=== PATIENT | female | born 1940 | race Caucasian/White ===

== ENCOUNTER → 2016-11-05 | Day surgery (SDC) | payer OTHER ==
[~2016-11-05] MED LIST: ALEN70 PO; BUPIVACAINE HCL PF 0.75% 30 ML VIAL ONE; CALTTAB2 PO; CENTTAB9 PO; DEXAMETHASONE SOD PHOS 4 MG/ML VIAL ONE; DYAZ37.52 PO; EPINEPHrine HCL (1:1000) 1 MG/ML VIAL ONE; LACTATED RINGER'S 1000 ML INJ 1,000 ML ONE; LASI20TA PO; LIDOCAINE HCL 4% PF 5 ML AMP ONE; MEVA40TA6 PO; MIDAZOLAM HCL 2 MG/2 ML VIAL ONE; MOXIFLOXACIN 0.5% OPHT SOLN 3 ML BTL ONE; ONDANSETRON HCL 4 MG/2 ML VIAL IV PUSH ONE; PHENYLEPHRINE HCL 10% OPTH SOLN 5 ML BTL ONE; PROPOFOL 100 MG/10 ML INJ IV ONE; ROXI5TAB4 PO; SODIUM CHLORIDE 0.9% INJ 10 ML ONE; TETRACAINE 0.5% OPTH SOLN 15 ML BTL ONE; TOBRAMYCIN/DEXAMETHASONE OPTH OINT 3.5 GM TUBE ONE; TRAZ50TA78 PO; TRIAMCINOLONE ACETONIDE 40 MG/ML VIAL ONE; ceFAZolin INJ 1,000 MG VIAL ONE; prednisoLONE ACETATE 1% OPHT SUSP 5 ML BTL ONE
--- NOTE | 2016-11-07 06:09 | TN ---
cc: BO OREILLY MD DATE OF SURGERY November 05, 2016 DATE OF 1940. PREOPERATIVE DIAGNOSIS Dense asteroid hyalosis left eye. POSTOPERATIVE DIAGNOSIS Dense asteroid hyalosis left eye. PROCEDURE Pars plana vitrectomy left eye. ANESTHESIA Dr. Paredes general. BLOOD LOSS Less than 1 cc. COMPLICATIONS None. INDICATIONS FOR PROCEDURE This is a delightful patient who initially presented with a retinal vein occlusion which was successfully treated. The patient was left with central retinal atrophy which limited central vision but the patient also has a difficult time with daily function with dense asteroid hyalosis. The patient elected for surgical correction understanding that the central vision would continue to be limited with central atrophy. PROCEDURE NOTE Informed consent was obtained, the patient was brought to operating room. General anesthesia was established. The left eye was prepped and draped in sterile fashion with Betadine in the conjunctival fornix. A three port pars vitrectomy was established with self-retaining infusion cannula. Core vitreous was removed, posterior vitreous detachment created and central asteroid hyalosis with central asteroid bodies were removed. Scleral depressed examination revealed no retinal holes, tears or detachments. The trocars were removed and sclerotomies closed. Subconjunctival injection of Ancef and dexamethasone were given. The eye was patched with Tobramycin ointment. The patient was brought to the recovery room in stable condition and will continue followup with [facility]. Bo Oreilly MD KW/SSB /9:46 AM /5:53 AM
== END | disposition home or self-care (01) ==
LOC: ESDC 09:03
PROVIDERS: ATTEND Ophthalmology
DX: H43.22 Crystalline deposits in vitreous body, left eye (principal)
CPT/HCPCS: 00145; 67036; J0171; J0690; J1100; J2250; J2405; J3010; J7120; J3301

== ENCOUNTER 2017-11-03 07:38 | Day surgery (SDC) | payer OTHER, MEDICAID ==
[~2017-11-03] VITALS: Ht 160 cm; Wt 71.8 kg
[~2017-11-03 07:38] MED LIST changes: -BUPIVACAINE HCL PF 0.75% 30 ML VIAL ONE; -DEXAMETHASONE SOD PHOS 4 MG/ML VIAL ONE; -EPINEPHrine HCL (1:1000) 1 MG/ML VIAL ONE; -LACTATED RINGER'S 1000 ML INJ 1,000 ML ONE; -LIDOCAINE HCL 4% PF 5 ML AMP ONE; -MIDAZOLAM HCL 2 MG/2 ML VIAL ONE; -MOXIFLOXACIN 0.5% OPHT SOLN 3 ML BTL ONE; -ONDANSETRON HCL 4 MG/2 ML VIAL IV PUSH ONE; -PHENYLEPHRINE HCL 10% OPTH SOLN 5 ML BTL ONE; -PROPOFOL 100 MG/10 ML INJ IV ONE; -SODIUM CHLORIDE 0.9% INJ 10 ML ONE; -TETRACAINE 0.5% OPTH SOLN 15 ML BTL ONE; -TOBRAMYCIN/DEXAMETHASONE OPTH OINT 3.5 GM TUBE ONE; -TRIAMCINOLONE ACETONIDE 40 MG/ML VIAL ONE; -ceFAZolin INJ 1,000 MG VIAL ONE; -prednisoLONE ACETATE 1% OPHT SUSP 5 ML BTL ONE
[2017-11-03 07:56] VITALS: BP 188/102; PULSE 77; RESP 20; TEMP 97.8; O2SAT 97
[2017-11-03] MEDS ORDERED: DEXA4TAB PO (08:01)
[2017-11-03] MEDS ORDERED: ROSU5 PO (08:01)
[2017-11-03] MEDS ORDERED: LORA0.5T PO (08:01)
[2017-11-03] MEDS ORDERED: TAMO10TA6 PO (08:01)
[2017-11-03] MEDS ORDERED: ENOX100I SQ (08:01)
[2017-11-03 08:30] LABS: AUTOMATED NEUTROPHIL # 9.6 TH/MM3 (1.8-7.7); BASOPHIL # 0.1 TH/MM3 (0-0.2); BASOPHIL % 0.4 % (0.0-2.0); EOSINOPHIL # 0.2 TH/MM3 (0-0.4); EOSINOPHIL % 1.7 % (0.0-4.0); HEMATOCRIT 42.2 % (35.0-46.0); HEMOGLOBIN 14.4 GM/DL (11.6-15.3); LYMPH % 21.2 % (9.0-44.0); LYMPHOCYTE # 2.9 TH/MM3 (1.0-4.8); MEAN CELL VOLUME 89.9 FL (80.0-100.0); MEAN CORPUSCULAR HEMOGLOBIN 30.7 PG (27.0-34.0); MEAN CORPUSCULAR HGB CONC 34.1 % (32.0-36.0); MEAN PLATELET VOLUME 7.8 FL (7.0-11.0); MONO % 6.5 % (0.0-8.0); MONOCYTE # 0.9 TH/MM3 (0-0.9); NEUT % 70.2 % (16.0-70.0); PLATELET COUNT 276 TH/MM3 (150-450); RED CELL DISTRIBUTION WIDTH 14.7 % (11.6-17.2); WHITE BLOOD COUNT 13.8 TH/MM3 (4.0-11.0)
[2017-11-03] MEDS ORDERED: ceFAZolin 2 GM PREMIX 50 ML IV SCH (08:45)
[2017-11-03] MEDS ORDERED: POVIDONE IODINE 5% (ANTISEPSIS KIT) 4 APPLICATIONS EACH NARE SCH (08:45)
[2017-11-03] MEDS ORDERED: CHLORHEXIDINE GLUCONATE 2 % 1 PACK (2 CLOTHS) TOPICAL SCH (08:45)
[2017-11-03] MEDS ORDERED: SODIUM CHLOR 0.9% 1000 ML INJ 1,000 ML IV SCH (08:45)
[2017-11-03] MEDS ORDERED: VANCOMYCIN 1 GM/200 ML PREMIX ON-CALL IV SCH (09:00)
[2017-11-03] MEDS ORDERED: fentaNYL CITRATE 250 MCG/5 ML AMP ONE (09:28)
[2017-11-03] MEDS ORDERED: MIDAZOLAM HCL 2 MG/2 ML VIAL ONE (09:28)
[2017-11-03 10:45] VITALS: BP 150/84; PULSE 59; RESP 20; TEMP 97.8; O2SAT 97
[2017-11-03 11:00] VITALS: BP 152/77; PULSE 57; RESP 20; O2SAT 96
--- NOTE | 2017-11-03 11:14 | PD.RAD ---
Post Procedure Progress Note Pre Procedure Diagnosis: (1) Lung cancer Post Procedure Diagnosis: (1) Lung cancer Procedure Date: Nov 03, 2017 Supervising Radiologist: Sheldon Rogers Proceduralist/Assist: Jeannine Dunaway, RT(R), Andra Avalos, RT(R) Estimated blood loss: none Anesthesia: Local, Conscious Sedation Plan of Activity Patient to Unit: ROPU Patient Condition: Good See PACS Report for procedural detail/treatment Central Venous Access Device Procedure 1 Right Internal Jugular Infusaport Placement single lumen Hungarian: 8 Sheldon Rogers MD Nov 03, 2017 11:14
[2017-11-03] MEDS ORDERED: SODIUM CHLORIDE 0.9% FLUSH 10 ML FLUSH IVF PRN (11:15)
--- NOTE | 2017-11-03 11:23 | RADRPT ---
EXAM DATE/TIME: 11/03/2017 11:16 [place] COMPARISON: No previous studies available for comparison. INDICATIONS : Patient presents with lung cancer in need of port placement. MEDICAL HISTORY : Right Breast Cancer Vaginal Prolapse Hyperlipidemia HTN Hypothyroidism Osteopenia Pelvic Congestion Syndrome Vitamin D Deficiency SURGICAL HISTORY : Hand Sx Repair Colonoscopy Hysterectomy Plastic Sx on Eyes Lumpectomy Lymph Nodectomy ENCOUNTER: Initial ACUITY: 3 months PAIN SCORE: 0/10 FLUORO TIME: .5 minutes IMAGE SERIES: 1 SEDATION TIME: 30 minutes ACCESS: Right internal jugular vein SEDATION: 1.) 3.5 mg midazolam (Versed) IV 2.) 125 mcg fentanyl (Sublimaze) IV Prophylactic antibiotics were administered with appropriate pre-procedure timing. Vancomycin within 2 hours of procedure, Ancef (or alternative) within 1 hour of procedure. DEVICE: 1. 8 Niuean single lumen [id number] PROCEDURE : 1. Continuous pulse oximetry and EKG monitoring. 2. Intravenous conscious sedation. 3. Ultrasound guidance for venous access. 4. Fluoroscopic guided implantable central venous port placement. The patient was placed supine. The neck was prepped in sterile fashion. Full sterile technique was u sed, including cap, mask, sterile gloves and gown, and a large sterile sheet. Hand hygiene and 2% ch lorhexidine Betadine was utilized per protocol for cutaneous antisepsis with appropriate dry time for site. Sterile gel and sterile probe cover were utilized for ultrasound guidance. The skin and sub cutaneous tissues were infiltrated with local anesthetic solution. Under direct ultrasound guidance, central venous access was accomplished in the targeted vessel. The ultrasound images depicting access guidance were stored and saved to PACS for permanent record. A s ubcutaneous pocket was created using blunt dissection. The port was introduced to the pocket. The c atheter tubing was fed through a subcutaneous tunnel to the venotomy site. The catheter tubing was c ut to a suitable length and then was introduced through a valved Peel-Away sheath and positioned with catheter tubing tip at the cavo-atrial junction level. The pocket incision was closed with subcutic ular Vicryl suture. Steri-Strips were applied. The port was flushed and locked with heparin solutio n per protocol. Sterile dressing was applied to the site. The patient tolerated the procedure well. Conscious sedation was performed with the prescribed dosages and duration as above in the presence of an independent trained radiology nurse to assist in the monitoring of the patient. EKG and oximetry remained stable throughout the procedure. The patient tolerated the procedure well and there were no complications. The patient was sent to post anesthesia recovery in stable condition. CONCLUSION: Uncomplicated ultrasound and fluoroscopic guided implanted central venous port catheter placement as described in detail above. An 8 Niuean Power port was placed. Sheldon Rogers MD on November 03, 2017 at 11:20 Board Certified Radiologist. This report was verified electronically.
[2017-11-03 11:30] VITALS: BP 160/97; PULSE 64; RESP 20; O2SAT 98
[2017-11-03 12:00] VITALS: BP 149/89; PULSE 68; RESP 20; O2SAT 98
[2017-11-03 12:30] VITALS: BP 115/66; PULSE 64; RESP 20; O2SAT 95
== END 2017-11-03 15:31 | disposition home or self-care (01) ==
LOC: HROP 07:38 → HRIP 07:42 → HROP 15:31
PROVIDERS: ATTEND Internal Medicine
DX: Z45.2 Encounter for adjustment and management of vascular access device (principal); C34.90 Malignant neoplasm of unspecified part of unspecified bronchus or lung; Z85.3 Personal history of malignant neoplasm of breast; E78.5 Hyperlipidemia, unspecified; I10 Essential (primary) hypertension; E03.9 Hypothyroidism, unspecified; M85.80 Other specified disorders of bone density and structure, unspecified site; E55.9 Vitamin D deficiency, unspecified; Z79.01 Long term (current) use of anticoagulants
CPT/HCPCS: 36561; 76937; 77001; 85025; 85610; 85730; 99152; 99153; C1788; J0690; J1642; J2250; J3010; J3370

== ENCOUNTER 2018-06-10 12:18 | Inpatient (IN) ==
[2018-06-10] MEDS ORDERED: Morphine Inj 4 MG/ML Vial IV.PUSH ONE (13:35)
--- NOTE | 2018-06-10 13:39 | ED ---
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 The patient states that her last dose of chemotherapy was 05/29/18. States that she has been getting chemotherapy every 3 weeks for the past 8 months. States that she typically has nausea and vomiting 3 days after her chemotherapy and then it resolves. States that this time she has been vomiting for 2 weeks straight and has been unable to keep down food. States she has been able to keep down fluids. She also complains of abdominal pain on the left side. Aggravated with vomiting and palpation. Denies any prior abdominal surgeries. She does note that she had a week's worth of dark black stool that occurred 1 week ago. She denies any fever, chills, cough or cold symptoms. She is also complaining of lower back pain which has been present for quite some time, reports a history of osteoarthritis in her spine. Denies any new injury or trauma to her lower back. Pain in the lower back is aggravated with movement. Oncologist Dr. Lam. No other complaints or concerns. Related Data Home Medications Medication Instructions Recorded Confirmed apixaban [Eliquis] 2.5 mg PO BID 06/10/18 06/10/18 folic acid 1 mg PO DAILY 06/10/18 06/10/18 furosemide 20 mg PO DAILY 06/10/18 06/10/18 ibuprofen 800 mg PO TID PRN 06/10/18 06/10/18 levothyroxine 25 mcg DIRECTED 06/10/18 06/10/18 lorazepam 0.5 mg PO DIRECTED 06/10/18 06/10/18 potassium chloride 20 meq PO DIRECTED 06/10/18 06/10/18 rosuvastatin 5 mg PO DAILY 06/10/18 06/10/18 tizanidine 4 mg PO DAILY 06/10/18 06/10/18 trazodone 50 mg PO DAILY 06/10/18 06/10/18 triamterene-hydrochlorothiazid 37.5 mg PO DAILY 06/10/18 06/10/18 Allergies Allergy/AdvReac Type Severity Reaction Status Date / Time No Known Allergies Allergy Unknown Uncoded 11/03/17 08:29 Review of Systems ROS: all other systems reviewed are negative [facility] Medical History Medical History Anxiety (Acute) Bone cancer (Acute) Chronic kidney disease (Acute) DVT (deep venous thrombosis) (Acute) Former smoker (Acute) Hypertension (Acute) Hypothyroidism (Acute) Insomnia (Acute) Lung cancer (Acute) Social History Social History Substance History: No History of Abuse Smoking Status: Unknown if ever smoked How Often Do You Have a Drink Containing Alcohol: Never Recent Travel in [facility] within the Last 8 Weeks: No Recent Out of Country Travel within the Last 8 Weeks: No Immunization History Tetanus Immunization: <5 Years Hx Influenza Vaccine This Season: No Exam Narrative Exam Narrative: GENERAL: Well-nourished and well-developed pleasant patient in no acute distress who is nontoxic appearing. SKIN: Warm and dry. Pallor noted. HEAD: Normocephalic and atraumatic. EYES: No injection, drainage, or hyphema noted. PERRLA. EOMI. ENT: No nasal drainage noted. Oropharynx is clear. NECK: Supple and the trachea is midline. CARDIOVASCULAR: Regular rate and rhythm. RESPIRATORY: Breath sounds are equal bilaterally with no accessory muscle use, wheezing, rhonchi, or crackles. GASTROINTESTINAL: Tenderness to palpation of left upper quadrant and left lower quadrant. Abdomen is soft nondistended. No rebound tenderness or guarding. Negative Martinez sign. Negative McBurney's point. RECTAL EXAM: No masses or tenderness, stool is brown. Performed by Molly BASS student under my direct supervision. MUSCULOSKELETAL: No obvious deformities, swelling, cyanosis, or ecchymosis is present throughout the upper and lower extremities. Patient has full range of motion without any signs of neurovascular compromise. Distal pulses are 2+ throughout. BACK: Nontender without any obvious deformities, bony point tenderness, or crepitus noted throughout the thoracic and lumbar vertebrae. NEUROLOGICAL: Awake, alert, and oriented. Normal speech and gait. Cranial nerves are grossly intact. Procedures Hemaprompt Stool Procedural Steps Taken: specimen placed in appropriate test area, developer placed on specimen and control areas and controls appropriately positive and negative Hemaprompt Stool Result: negative Course Initial Documented Vital Signs Temperature 97.4 F L 06/10/18 12:25 Pulse Rate 112 H 06/10/18 12:25 Respiratory Rate 18 06/10/18 12:25 Blood Pressure 119/70 06/10/18 12:25 Pulse Oximetry 96 06/10/18 12:25 Last Documented Vital Signs Temperature 97.4 F L 06/10/18 12:25 Pulse Rate 81 06/10/18 16:00 Respiratory Rate 18 06/10/18 16:00 Blood Pressure 141/73 H 06/10/18 16:00 Pulse Oximetry 96 06/10/18 16:00 Medical Decision Making KASSANDRA Attestation KASSANDRA supervised visit: Yes Attestation: The history, exam, and medical decision-making in the associated mid-level provider note were completed with my assistance. I reviewed and agree with the findings presented. I attest that I had a [id number] encounter with the patient on the same day, and personally performed and documented my assessment and findings in the medical record. *My assessment and Findings: 77-year-old woman with malignancy, here with nausea vomiting diarrhea following chemotherapy. Much worse than she typically gets it. Looks nontoxic. She appears dehydrated. Her potassium is low. CT scan shows some enteritis. Will check C. difficile. She also has pyuria. Will treat for UTI. Supportive treatment. IV fluid rehydration. Will bring in for admission. MDM Narrative Medical decision making narrative: 77-year-old female is brought to the emergency department for evaluation of abdominal pain, nausea, vomiting and diarrhea. Vitals are within normal limits, slightly tachycardic. IV access is obtained, labs have been drawn and sent. CT of abdomen and pelvis ordered and pending. Patient administered IV fluids, Zofran and Morphine. CBC shows anemia with hemoglobin 9.3, hematocrit 25.5 Consistent with previous labs, slightly improved. Coags are unremarkable. CMP shows potassium 2.7, Cr is elevated at 1.30, BUN 23, GFR 40. Urinalysis is consistent with urinary tract infection. Patient is administered Rocephin [address] of the abdomen and pelvis with IV contrast shows mild colitis of the large bowel, left lower lobe mass has been present previously due to stage IV cancer. Will check C. difficile. Patient is administered 40 mEq of potassium orally. Patient reports she is still feeling very nauseous and weak. Discussed results with the patient. Recommend observation for IV hydration and electrolyte repletion. Patient is agreeable with this plan. I discussed the case with my attending physician Dr. Renteria who is aware of the patient's history, physical examination findings, and treatment plan. I discussed the patient with Dr. Santamaria [facility] who agrees to accept the patient under observation. Medical Screen Exam Complete: Yes Emergency Medical Condition: Yes Differential Diagnosis Differential Diagnosis: Anemia versus leukemia versus thrombocytopenia Lab Data Result diagrams: 06/10/18 14:05 06/10/18 14:05 Lab Results 06/10/18 06/10/18 06/10/18 Range/Units 14:05 14:05 16:05 WBC 7.1 (4.0-11.0) th/mm3 RBC 2.47 L (4.00-5.30) mil/mm3 Hgb 9.3 L (11.6-15.3) gm/dL Hct 25.5 L (35.0-46.0) % MCV 103.3 H (80.0-100.0) fL MCH 37.7 H (27.0-34.0) pg MCHC 36.5 H (32.0-36.0) % RDW 19.2 H (11.6-17.2) % Plt Count 31 L D (150-450) th/mm3 MPV 7.5 (7.0-11.0) fL Prelim Diff (Auto) Slide review pending Neut % (Auto) 79.0 H (16.0-70.0) % Lymph % (Auto) 14.7 (9.0-44.0) % Clark % (Auto) 6.1 (0.0-8.0) % Eos % (Auto) 0.0 (0.0-4.0) % Baso % (Auto) 0.2 (0.0-2.0) % Neut # (Auto) 5.6 (1.8-7.7) th/mm3 Lymph # (Auto) 1.0 (1.0-4.8) th/mm3 Clark # (Auto) 0.4 (0.0-0.9) th/mm3 Eos # (Auto) 0.0 (0.0-0.4) th/mm3 Baso # (Auto) 0.0 (0.0-0.2) th/mm3 WBC Differential . Diff Scan Auto diff confirmed Differential Comment . Platelet Estimate Low L (Normal) Platelet Morphology Normal (Normal) Sodium 135 L (136-145) meq/L Potassium 2.7 L* (3.5-5.1) meq/L Chloride 95 L (98-107) meq/L Carbon Dioxide 27.2 (21.0-32.0) meq/L Anion Gap 13 (5-15) meq/L BUN 23 H (7-18) mg/dL Creatinine 1.30 H (0.50-1.00) mg/dL Estimated GFR 40 L (>89) mL/min Random Glucose 143 H (74-106) mg/dL Calcium 8.7 (8.5-10.1) mg/dL Total Bilirubin 1.0 (0.2-1.0) mg/dL AST 34 (15-37) U/L ALT 28 (10-53) U/L Alkaline Phosphatase 46 (45-117) U/L Total Protein 7.2 (6.4-8.2) g/dL Albumin 2.3 L (3.4-5.0) g/dL Lipase 129 (73-393) U/L Urine Color [place] (Yellw/Straw) Urine Clarity Cloudy H (Clear) Urine pH 5.0 (5.0-8.5) Ur Specific [place] 1.016 (1.002-1.035) Urine Protein 100 H (Neg-Trace) mg/dL Urine Glucose (UA) Negative (Negative) mg/dL Urine Ketones Trace H (Negative) mg/dL Urine Occult Blood Moderate H (Negative) Urine Nitrate Positive H (Negative) Urine Bilirubin Negative (Negative) Urine Urobilinogen 2.0 H (Less than 2) mg/dL Ur Leukocyte Esterase Large H (Negative) Urine RBC 4 H (0-3) /hpf Urine WBC (0-5) /hpf Urine WBC Clumps Occasional H (None) Ur Squamous Epith Cells 7 (0-5) /hpf Urine Bacteria Many H (None) /hpf Hyaline Casts 2 (0-3) /lpf Granular Casts 11 (None) /lpf Urine Mucus Few H (Occasional) /lpf Micro UA Comment Culture indicated Ur Microscopic Review Not Reportable Urine Culture Comments Culture indicated Imaging Data Radiologist's impression: Abdomen/Pelvis CT 06/10/18 13:35 CONCLUSION: 1. Left lower lobe spiculated mass. 2. Fat-containing inguinal hernias. 3. Severe diverticulosis. 4. Small bowel wall thickening involving the large bowel which may reflect a mild colitis. Discharge Plan Discharge Disposition Patient Disposition: 30 Still Patient Discharge Condition Condition: Stable Discharge Details Diagnosis: Colitis, Nausea & vomiting, Acute UTI, Acute hypokalemia Physicians Team ED Provider: Markell Renteria ED Midlevel Provider: Maris Martinez Primary Care Provider: Getachew Chilel Rxs /Orders / Referrals /Forms Prescriptions: No Action apixaban [Eliquis] 2.5 mg Tablet 2.5 mg PO BID RF: 0 trazodone 50 mg Tablet 50 mg PO DAILY RF: 0 ibuprofen 800 mg Tablet 800 mg PO TID PRN (Reason: Pain) RF: 0 tizanidine 4 mg Tablet 4 mg PO DAILY RF: 0 triamterene-hydrochlorothiazid 37.5-25 mg Capsule 37.5 mg PO DAILY RF: 0 levothyroxine 25 mcg Tablet 25 mcg DIRECTED RF: 0 lorazepam 0.5 mg Tablet 0.5 mg PO DIRECTED RF: 0 folic acid 1 mg Tablet 1 mg PO DAILY RF: 0 furosemide 20 mg Tablet 20 mg PO DAILY RF: 0 rosuvastatin 5 mg Tablet 5 mg PO DAILY RF: 0 potassium chloride 20 mEq Tablet Extended Release 20 meq PO DIRECTED RF: 0 Discharge Interventions Interventions: Vital Signs Last Done: 06/10/18 17:00 Status ED Status: With Doctor
[2018-06-10] MEDS ORDERED: Sodium Chlor 0.9% Inj 500 ML IV.SIG SCH (14:00)
[2018-06-10 14:58] LABS: Baso % (Auto) 0.2 % (0.0-2.0); Hematocrit 25.5 % (35.0-46.0); Hemoglobin 9.3 gm/dL (11.6-15.3); Lymph % (Auto) 14.7 % (9.0-44.0); Mean Corpuscular Hemoglobin 37.7 pg (27.0-34.0); Mean Corpuscular Volume 103.3 fL (80.0-100.0); Mean Platelet Volume 7.5 fL (7.0-11.0); Mono # (Auto) 0.4 th/mm3 (0.0-0.9); Mono % (Auto) 6.1 % (0.0-8.0); Neut # (Auto) 5.6 th/mm3 (1.8-7.7); Red Blood Count 2.47 mil/mm3 (4.00-5.30); Red Cell Distribution Width 19.2 % (11.6-17.2); White Blood Count 7.1 th/mm3 (4.0-11.0)
[2018-06-10 14:59] LABS: Mean Corpuscular HGB Conc 36.5 % (32.0-36.0)
[2018-06-10 15:00] LABS: Platelet Count 31 th/mm3 (150-450)
[2018-06-10 15:35] LABS: Alanine Aminotransferase 28 U/L (10-53); Albumin 2.3 g/dL (3.4-5.0); Alkaline Phosphatase 46 U/L (45-117); Anion Gap 13 meq/L (5-15); Aspartate Aminotransferase 34 U/L (15-37); Blood Urea Nitrogen 23 mg/dL (7-18); Calcium 8.7 mg/dL (8.5-10.1); Carbon Dioxide 27.2 meq/L (21.0-32.0); Chloride 95 meq/L (98-107); Glomerular Filtration Rate 40 mL/min (>89); Glucose,Random 143 mg/dL (74-106); Lipase 129 U/L (73-393); Sodium 135 meq/L (136-145); Total Protein 7.2 g/dL (6.4-8.2)
[2018-06-10 15:38] LABS: Potassium 2.7 meq/L (3.5-5.1)
[2018-06-10 15:44] LABS: Platelet Morphology Normal (Normal)
[2018-06-10 16:41] LABS: Bacteria,Urine Many /hpf; Bilirubin,Urine Negative (Negative); Clarity,Urine Cloudy (Clear); Color,Urine Amber (Yellw/Straw); Glucose,Urine (UA) Negative (Negative); Hyaline Casts,Urine 2 /lpf (0-3); Leukocyte Esterase,Urine Large (Negative); Mucus,Urine Few /lpf (Occasional); Nitrite,Urine Positive (Negative); Specific Gravity,Urine 1.016 (1.002-1.035); Squamous Epithelial Cell,Urine 7 /hpf (0-5)
[2018-06-10] MEDS ORDERED: Sod Chloride 0.9% Inj 1,000 ML IV.SIG SCH (17:00)
[2018-06-10] MEDS ORDERED: Heparin Central Flush 100 UNIT/ML 5 ML Vial IV.FLUSH ONE (17:13)
--- NOTE | 2018-06-10 17:14 | CT ---
EXAM DATE: 06/10/2018 5:08 PM EDT AGE/SEX: 77 years / Female INDICATIONS: 2 weeks post chemotherapy and still having nausea, vomiting, diarrhea. Unable to jonna ate food. CLINICAL DATA: This is the patient's initial encounter. Patient reports that signs and symptoms have been present for 2 weeks and indicates a pain score of 0/10. MEDICAL/SURGICAL HISTORY: Carcinoma, bone. Carcinoma, lung. None. ORAL CONTRAST: No oral contrast ingested. RADIATION DOSE: 18.64 CTDI (mGy) COMPARISON: [facility], CT ABDOMEN AND PELVIS W/ CONTRAST, 01/21/2018. . TECHNIQUE: Multiple contiguous axial images were obtained through the abdomen and pelvis following b olus infusion of 83 ml Visipaque 320 (iodixanol) nonionic water-soluble contrast as a single exam d ose. No oral contrast ingested. Using automated exposure control and adjustment of the mA and/or kV according to patient size, radiation dose was kept as low as reasonably achievable to obtain optimal diagnostic quality images. DICOM format image data is available electronically for review and compar judit. FINDINGS: There is a spiculated mass in the left lower lobe again seen. There is atelectasis in the right lung base with tiny right effusion. Gallbladder, liver, spleen, pancreas, adrenals, kidneys and stomach ar e unremarkable. No evidence of bowel obstruction. Small fat-containing inguinal hernias are identifie d. There is severe diverticulosis of the sigmoid colon and descending colon identified. There is no e vidence for diverticulitis. There is circumferential bowel wall thickening involving the transverse c olon and proximal ascending colon as well as the descending colon and sigmoid colon. A mild colitis c an have this appearance. Atherosclerotic calcification of the aorta and iliac vessels are seen. Withi n the ventral left lateral abdominal wall, subcutaneous fat just deep to the skin, a 1.7 cm ovoid mas s is seen just inferior and medial to this is an additional 1.1 cm nodular focus. These are nonspecif ic but likely related to medicinal injection. Degenerative changes of the spine are seen and scattere d tiny sclerotic foci within the bones. CONCLUSION: 1. Left lower lobe spiculated mass. 2. Fat-containing inguinal hernias. 3. Severe diverticulosis. 4. Small bowel wall thickening involving the large bowel which may reflect a mild colitis. Electronically signed by: Darien Prado MD 06/10/2018 5:13 PM EDT
[2018-06-10] MEDS ORDERED: Acetaminophen 325 MG Tablet PO PRN (18:07)
--- NOTE | 2018-06-10 18:23 | P.HP ---
History of Present Illness Primary Care Physician: [facility] Chief Complaint: Intractable, nausea and vomiting History of Present Illness: 27-year-old female who for history of breast cancer with metastases on chemotherapy presented to the ED for evaluation of 3 weeks history of intractable nausea, vomiting and abdominal pain. Patient complains of dull and achy abdominal pain without any radiation to her back.. CT abdomen and the ED revealed mild colitis and the patient was found to have low potassium of 2.7. She has no GI bleed, however reports some occasional shortness of breath but denies any chest pain. Although patient does not endorse any dysuria, she was found to have abnormal UA for which she was treated with Rocephin 1 in ED. - Diagnosis (1) Colitis (2) Nausea & vomiting (3) Acute UTI (4) Acute hypokalemia Review of Systems All other systems reviewed negative except as stated in HPI PMFSH - History History Provided By: Patient - Medical History Medical History: Medical History (Last Updated 06/10/18 @ 13:47 by Michelle Garvin) Anxiety Bone cancer Chronic kidney disease DVT (deep venous thrombosis) Former smoker Hypertension Hypothyroidism Insomnia Lung cancer - Family History Family History: Family History (Last Updated 06/10/18 @ 18:31 by Stone Santamaria MD) Other Colon cancer - Tobacco History Smoking Status: Unknown if ever smoked - Alcohol History How Often Do You Have a Drink Containing Alcohol: Never - Substance Use History Substance History: No History of Abuse - Travel History Recent Travel in the [place] Within the Last 8 Weeks: No Recent Travel Out of the Country Within the Last 8 Weeks: No - Immunization History Tetanus Immunization: <5 Years Hx Influenza Vaccine This Season: No Medications and Allergies Active Medications: Active Medications Acetaminophen (Tylenol) 650 mg PO Q4H PRN PRN Reason: Temp > 100.4 Al Hydroxide/Mg Hydroxide (Milk Of Magntoya Liq) 30 ml PO Q12H PRN PRN Reason: Mild Constipation Albuterol (Duoneb Neb (Prn)) 1 ampul NEB Q2HR NEB PRN PRN Reason: SHORTNESS OF BREATH Apixaban (Eliquis) 2.5 mg PO BID IFTIKHAR Folic Acid (Folic Acid) 1 mg PO DAILY IFTIKHAR Furosemide (Lasix) 20 mg PO DAILY IFTIKHAR Sodium Chloride (Ns Inj) 500 mls @ 0 mls/hr IV.SIG BOLUS IFTIKHAR Last Infusion: 06/10/18 15:10 Dose: Infused Sodium Chloride (Ns Inj) 1,000 mls @ 0 mls/hr IV.SIG BOLUS IFTIKHAR Last Admin: 06/10/18 17:33 Dose: 999 mls/hr Potassium Chloride/Sodium Chloride (Potassium Chlor 20 Meq/Nacl 0.45% Inj) 1, 000 mls @ 84 mls/hr IV.CONT .[id number] IFTIKHAR Ceftriaxone Sodium 1,000 mg/ (Sodium Chloride) 100 mls @ 200 mls/hr IV.SIG Q24H IFTIKHAR Levothyroxine Sodium (Synthroid) 25 mcg PO DIRECTED [facility] Non-Formulary Medication (Rosuvastatin [Rosuvastatin]) 5 mg PO DAILY IFTIKHAR Non-Formulary Medication (Potassium Chloride [Potassium Chloride]) 20 meq PO DIRECTED IFTIKHAR Ondansetron HCl (Zofran Inj) 4 mg IV.PUSH Q6H PRN PRN Reason: NAUSEA OR VOMITING Potassium Bicarb/Potassium Chloride (K-Lyte Cl Eff) 25 meq PO ONCE ONE Stop: 06/10/18 18:12 Sodium Chloride (Ns Flush) 2 ml IV.FLUSH PRN PRN PRN Reason: FLUSH AFTER USING IV ACCESS Last Admin: 06/10/18 14:17 Dose: 2 ml Triamterene/HCTZ (Dyazide 37.5/25 Mg) cap PO DAILY [facility] Allergies Allergy/AdvReac Type Severity Reaction Status Date / Time No Known Allergies Allergy Unknown Uncoded 11/03/17 08:29 Home Medications Medication Instructions Recorded Confirmed Type apixaban [Eliquis] 2.5 mg PO BID 06/10/18 06/10/18 History folic acid 1 mg PO DAILY 06/10/18 06/10/18 History furosemide 20 mg PO DAILY 06/10/18 06/10/18 History ibuprofen 800 mg PO TID PRN 06/10/18 06/10/18 History levothyroxine 25 mcg DIRECTED 06/10/18 06/10/18 History lorazepam 0.5 mg PO DIRECTED 06/10/18 06/10/18 History potassium chloride 20 meq PO DIRECTED 06/10/18 06/10/18 History rosuvastatin 5 mg PO DAILY 06/10/18 06/10/18 History tizanidine 4 mg PO DAILY 06/10/18 06/10/18 History trazodone 50 mg PO DAILY 06/10/18 06/10/18 History triamterene-hydrochlorothiazid 37.5 mg PO DAILY 06/10/18 06/10/18 History Exam Vital signs: Vital Signs 06/10/18 12:25 06/10/18 12:29 06/10/18 14:11 Temperature 97.4 F L Pulse Rate 112 H 105 H 91 H Respiratory Rate 18 20 18 Blood Pressure 119/70 149/65 H 150/69 H Pulse Oximetry 96 96 96 06/10/18 16:00 06/10/18 17:00 Temperature Pulse Rate 81 80 Respiratory Rate 18 18 Blood Pressure 141/73 H 141/73 H Pulse Oximetry 96 95 Intake & Output 06/09/18 06/10/18 06/10/18 18:59 06:59 18:59 Intake Total 500 / 500 Balance 500 / 500 Weight 70.307 kg Intake: IV 500 / 500 NS Inj 500 ML @ Wide Open IV. 500 / 500 SIG BOLUS IFTIKHAR Rx#:[id number] Narrative: GENERAL: NAD SKIN: Warm and dry. HEAD: Atraumatic. Normocephalic. EYES: Pupils equal and round. No scleral icterus. No injection or drainage. ENT: No nasal bleeding or discharge. Mucous membranes pink and moist. NECK: Trachea midline. No JVD. CARDIOVASCULAR: Regular rate and rhythm. RESPIRATORY: No accessory muscle use. Clear to auscultation. Breath sounds equal bilaterally. GASTROINTESTINAL: Abdomen soft, non-tender, nondistended. Hepatic and splenic margins not palpable. MUSCULOSKELETAL: Extremities without clubbing, cyanosis, or edema. No obvious deformities. NEUROLOGICAL: Awake and alert. No obvious cranial nerve deficits. Motor grossly within normal limits. Five out of 5 muscle strength in the arms and legs. Normal speech. PSYCHIATRIC: Appropriate mood and affect; insight and judgment normal. Results - Labs CBC & Chem 7: 06/10/18 14:05 06/10/18 14:05 Labs: Laboratory Results - last 24 hr 06/10/18 06/10/18 06/10/18 14:05 14:05 16:05 WBC 7.1 RBC 2.47 L Hgb 9.3 L Hct 25.5 L MCV 103.3 H MCH 37.7 H MCHC 36.5 H RDW 19.2 H Plt Count 31 L D MPV 7.5 Prelim Diff (Auto) Slide review pending Neut % (Auto) 79.0 H Lymph % (Auto) 14.7 [place] % (Auto) 6.1 Eos % (Auto) 0.0 Baso % (Auto) 0.2 Neut # (Auto) 5.6 Lymph # (Auto) 1.0 [place] # (Auto) 0.4 Eos # (Auto) 0.0 Baso # (Auto) 0.0 WBC Differential . Diff Scan Auto diff confirmed Differential Comment . Platelet Estimate Low L Platelet Morphology Normal Sodium 135 L Potassium 2.7 L* Chloride 95 L Carbon Dioxide 27.2 Anion Gap 13 BUN 23 H Creatinine 1.30 H Estimated GFR 40 L Random Glucose 143 H Calcium 8.7 Total Bilirubin 1.0 AST 34 ALT 28 Alkaline Phosphatase 46 Total Protein 7.2 Albumin 2.3 L Lipase 129 Urine Color [place] Urine Clarity Cloudy H Urine pH 5.0 Ur Specific [place] 1.016 Urine Protein 100 H Urine Glucose (UA) Negative Urine Ketones Trace H Urine Occult Blood Moderate H Urine Nitrate Positive H Urine Bilirubin Negative Urine Urobilinogen 2.0 H Ur Leukocyte Esterase Large H Urine RBC 4 H Urine WBC Urine WBC Clumps Occasional H Ur Squamous Epith Cells 7 Urine Bacteria Many H Hyaline Casts 2 Granular Casts 11 Urine Mucus Few H Micro UA Comment Culture indicated Ur Microscopic Review Not Reportable Urine Culture Comments Culture indicated - Imaging Impressions Abdomen/Pelvis CT 06/10/18 13:35 CONCLUSION: 1. Left lower lobe spiculated mass. 2. Fat-containing inguinal hernias. 3. Severe diverticulosis. 4. Small bowel wall thickening involving the large bowel which may reflect a mild colitis. Caprini VTE Risk Assessment Caprini VTE Risk Assessment: Moderate/High Risk (score >= 2) Caprini Risk Assessment Model: Point Value = 1 Point Value = 2 Point Value = 3 Point Value = 5 Age 41-60 Minor surgery BMI > 25 kg/m2 Swollen legs Varicose veins or History of unexplained or recurrent spontaneous Oral contraceptives or hormone replacement Sepsis (< 1 month) Serious lung disease, including pneumonia (< 1 month) Abnormal pulmonary function Acute myocardial infarction Congestive heart failure (< 1 month) History of inflammatory bowel disease Medical patient at bed rest Age 61-74 Arthroscopic surgery Major open surgery (> 45 min) Laparoscopic surgery (> 45 min) Malignancy Confined to bed (> 72 hours) Immobilizing plaster cast Central venous access Age >= 75 History of VTE Family history of VTE Factor V Leiden Prothrombin [id number] Lupus anticoagulant Anticardiolipin antibodies Elevated serum homocysteine Heparin-induced thrombocytopenia Other congenital or acquired thrombophilia Stroke (< 1 month) Elective arthroplasty Hip, pelvis, or leg fracture Acute spinal cord injury (< 1 month) Prophylaxis Regimen: Total Risk Factor Score Risk Level Prophylaxis Regimen 0-1 Low Early ambulation 2 Moderate Order ONE of the following: *Sequential Compression Device (SCD) *Heparin 5000 units SQ BID 3-4 Higher Order ONE of the following medications: *Heparin 5000 units SQ TID *Enoxaparin/Lovenox 40 mg SQ daily (WT < 150 kg, CrCl > 30 mL/min) *Enoxaparin/Lovenox 30 mg SQ daily (WT < 150 kg, CrCl > 10-29 mL/min) *Enoxaparin/Lovenox 30 mg SQ BID (WT < 150 kg, CrCl > 30 mL/min) AND/OR *Sequential Compression Device (SCD) 5 or more Highest Order ONE of the following medications: *Heparin 5000 units SQ TID (Preferred with Epidurals) *Enoxaparin/Lovenox 40 mg SQ daily (WT < 150 kg, CrCl > 30 mL/min) *Enoxaparin/Lovenox 30 mg SQ daily (WT < 150 kg, CrCl > 10-29 mL/min) *Enoxaparin/Lovenox 30 mg SQ BID (WT < 150 kg, CrCl > 30 mL/min) AND *Sequential Compression Device (SCD) Assessment and Plan - Assessment (1) Colitis Code(s): K52.9 - Noninfective gastroenteritis and colitis, unspecified Status : Acute (2) Nausea & vomiting Code(s): R11.2 - Nausea with vomiting, unspecified Status: Acute (3) Acute UTI Code(s): N39.0 - Urinary tract infection, site not specified Status: Acute (4) Acute hypokalemia Code(s): E87.6 - Hypokalemia Status: Acute - Plan 77-year-old female with Intractable nausea and vomiting Start gentle IV fluid hydration, antiemetic Mild colitis CT abdomen noted and reviewed by me with finding of Small bowel wall thickening involving the large bowel which may reflect a mild colitis Secondary to above process Continue to monitor Hypokalemia Replace electrolytes and monitor Start NS with K Urinary tract infection Status post Rocephin IV 1 in ED, continue antibiotic pending urine culture Acute renal injury Renal secondary to dehydration Gentle IV fluid hydration and monitor BUN and creatinine Avoid all nephrotoxic drug History of breast cancer with metastases Oncology consultation as needed History of lower extremity DVT Resume Eliquis Other chronic medical conditions Resume outpatient medications (2) Nausea & vomiting Qualifiers: Vomiting type: unspecified Vomiting Intractability: intractable Qualified Code(s): R11.2 - Nausea with vomiting, unspecified
[2018-06-10] MEDS ORDERED: Potassium Chloride 25 MEQ Effervescent Tablet PO ONE (19:30)
[2018-06-10] MEDS: KCL 20 mEq/NACL 0.45% Inj 1,000 ML IV.CONT SCH (22:33)
[2018-06-11 07:50] LABS: Baso % (Auto) 0.2 % (0.0-2.0); Eos % (Auto) 0.2 % (0.0-4.0); Hemoglobin 7.2 gm/dL (11.6-15.3); Lymph # (Auto) 1.4 th/mm3 (1.0-4.8); Lymph % (Auto) 28.2 % (9.0-44.0); Mean Corpuscular HGB Conc 35.1 % (32.0-36.0); Mean Corpuscular Hemoglobin 36.8 pg (27.0-34.0); Mean Corpuscular Volume 104.7 fL (80.0-100.0); Mono # (Auto) 0.3 th/mm3 (0.0-0.9); Mono % (Auto) 6.4 % (0.0-8.0); Neut # (Auto) 3.3 th/mm3 (1.8-7.7); Platelet Count 30 th/mm3 (150-450); Red Blood Count 1.97 mil/mm3 (4.00-5.30)
[2018-06-11 08:00] LABS: Hematocrit 20.6 % (35.0-46.0)
[2018-06-11 08:03] LABS: Albumin 2.1 g/dL (3.4-5.0); Anion Gap 11 meq/L (5-15); Aspartate Aminotransferase 28 U/L (15-37); Blood Urea Nitrogen 20 mg/dL (7-18); Carbon Dioxide 23.1 meq/L (21.0-32.0); Chloride 100 meq/L (98-107); Glomerular Filtration Rate 46 mL/min (>89); Glucose,Random 160 mg/dL (74-106); Potassium 3.3 meq/L (3.5-5.1); Sodium 134 meq/L (136-145)
[2018-06-11 08:04] LABS: Alanine Aminotransferase 25 U/L (10-53)
[2018-06-11 08:06] LABS: Alkaline Phosphatase 43 U/L (45-117); Total Protein 6.3 g/dL (6.4-8.2)
[2018-06-11 08:32] LABS: Platelet Morphology Normal (Normal)
[2018-06-11] MEDS: KCL 20 mEq/NACL 0.45% Inj 1,000 ML IV.CONT SCH ×2 (09:29→23:54)
[2018-06-11] MEDS: Furosemide 20 MG Tablet PO SCH (09:30)
[2018-06-11] MEDS: Folic Acid 1 MG Tablet PO SCH (09:30)
--- NOTE | 2018-06-11 11:48 | P.PNIM ---
Subjective Interval history: Patient reports no nausea or vomiting. Has not had a bowel movement overnight. Reports lower abdominal discomfort and pain. Physical Exam Vital signs: Vital Signs 06/10/18 12:25 06/10/18 12:29 06/10/18 14:11 Temperature 97.4 F L Pulse Rate 112 H 105 H 91 H Respiratory Rate 18 20 18 Blood Pressure 119/70 149/65 H 150/69 H Pulse Oximetry 96 96 96 06/10/18 16:00 06/10/18 17:00 06/10/18 20:00 Temperature 97.5 F L Pulse Rate 81 80 79 Respiratory Rate 18 18 16 Blood Pressure 141/73 H 141/73 H 168/71 H Pulse Oximetry 96 95 95 06/11/18 00:00 06/11/18 07:52 Temperature 97.0 F L 97.4 F L Pulse Rate 76 81 Respiratory Rate 17 20 Blood Pressure 150/70 H 127/76 Pulse Oximetry 97 95 Intake & Output 06/10/18 06/11/18 06/11/18 18:59 06:59 18:59 Intake Total 1600 / 1600 600 / 600 1100 / 1100 Balance 1600 / 1600 600 / 600 1100 / 1100 Weight 70.307 kg 70.4 kg Intake: IV 1600 / 1600 1100 / 1100 Potassium Chlor 20 mEq/NACL 0. 1000 / 1000 45% Inj 1,000 ML @ 84 mls/hr IV .CONT .[id number] IFTIKHAR Rx#:[id number] NS Inj 1,000 ML @ Wide Open IV. 1000 / 1000 SIG BOLUS IFTIKHAR Rx#:[id number] NS Inj 500 ML @ Wide Open IV. 500 / 500 SIG BOLUS IFTIKHAR Rx#:[id number] Rocephin Inj 1,000 MG In NS Inj 100 / 100 100 / 100 100 ML @ 200 mls/hr IV.SIG Q24H IFTIKHAR Rx#:[id number] Oral 600 / 600 Other: # Voids 2 Date of Last Bowel Movement 06/10/18 Narrative: GENERAL: This is a well-nourished, well-developed patient, in no apparent distress. CARDIOVASCULAR: Regular rate and rhythm without murmurs, gallops, or rubs. RESPIRATORY: Clear to auscultation. Breath sounds equal bilaterally. No wheezes , rales, or rhonchi. GASTROINTESTINAL: Abdomen soft, mild tenderness of the left lower quadrant with no rebound guarding nondistended normoactive bowel sounds MUSCULOSKELETAL: Extremities without clubbing, cyanosis, or edema. NEURO: Alert & Oriented x4 to person, place, time, situation. Moves all ext x4 Results - Labs CBC & Chem 7: 06/11/18 06:00 06/11/18 06:00 Laboratory Results - last 24 hr 06/10/18 06/10/18 06/10/18 14:05 14:05 16:05 WBC 7.1 RBC 2.47 L Hgb 9.3 L Hct 25.5 L MCV 103.3 H MCH 37.7 H MCHC 36.5 H RDW 19.2 H Plt Count 31 L D MPV 7.5 Prelim Diff (Auto) Slide review pending Neut % (Auto) 79.0 H Lymph % (Auto) 14.7 [place] % (Auto) 6.1 Eos % (Auto) 0.0 Baso % (Auto) 0.2 Neut # (Auto) 5.6 Lymph # (Auto) 1.0 [place] # (Auto) 0.4 Eos # (Auto) 0.0 Baso # (Auto) 0.0 WBC Differential . Diff Scan Auto diff confirmed Differential Comment . Platelet Estimate Low L Platelet Morphology Normal Sodium 135 L Potassium 2.7 L* Chloride 95 L Carbon Dioxide 27.2 Anion Gap 13 BUN 23 H Creatinine 1.30 H Estimated GFR 40 L Random Glucose 143 H Calcium 8.7 Total Bilirubin 1.0 AST 34 ALT 28 Alkaline Phosphatase 46 Total Protein 7.2 Albumin 2.3 L Lipase 129 Urine Color [place] Urine Clarity Cloudy H Urine pH 5.0 Ur Specific [place] 1.016 Urine Protein 100 H Urine Glucose (UA) Negative Urine Ketones Trace H Urine Occult Blood Moderate H Urine Nitrate Positive H Urine Bilirubin Negative Urine Urobilinogen 2.0 H Ur Leukocyte Esterase Large H Urine RBC 4 H Urine WBC Urine WBC Clumps Occasional H Ur Squamous Epith Cells 7 Urine Bacteria Many H Hyaline Casts 2 Granular Casts 11 Urine Mucus Few H Micro UA Comment Culture indicated Ur Microscopic Review Not Reportable Urine Culture Comments Culture indicated 06/11/18 06/11/18 06:00 06:00 WBC 5.0 RBC 1.97 L Hgb 7.2 L D Hct 20.6 L* MCV 104.7 H MCH 36.8 H MCHC 35.1 RDW 19.0 H Plt Count 30 L MPV 9.0 Prelim Diff (Auto) Slide review pending Neut % (Auto) 65.0 Lymph % (Auto) 28.2 [place] % (Auto) 6.4 Eos % (Auto) 0.2 Baso % (Auto) 0.2 Neut # (Auto) 3.3 Lymph # (Auto) 1.4 [place] # (Auto) 0.3 Eos # (Auto) 0.0 Baso # (Auto) 0.0 WBC Differential . Diff Scan Auto diff confirmed Differential Comment . Platelet Estimate Low L Platelet Morphology Normal Sodium 134 L Potassium 3.3 L Chloride 100 Carbon Dioxide 23.1 Anion Gap 11 BUN 20 H Creatinine 1.14 H Estimated GFR 46 L Random Glucose 160 H Calcium 8.0 L Total Bilirubin 0.6 AST 28 ALT 25 Alkaline Phosphatase 43 L Total Protein 6.3 L D Albumin 2.1 L Lipase Urine Color Urine Clarity Urine pH Ur Specific [place] Urine Protein Urine Glucose (UA) Urine Ketones Urine Occult Blood Urine Nitrate Urine Bilirubin Urine Urobilinogen Ur Leukocyte Esterase Urine RBC Urine WBC Urine WBC Clumps Ur Squamous Epith Cells Urine Bacteria Hyaline Casts Granular Casts Urine Mucus Micro UA Comment Ur Microscopic Review Urine Culture Comments - Imaging Impressions Abdomen/Pelvis CT 06/10/18 13:35 CONCLUSION: 1. Left lower lobe spiculated mass. 2. Fat-containing inguinal hernias. 3. Severe diverticulosis. 4. Small bowel wall thickening involving the large bowel which may reflect a mild colitis. Assessment and Plan - Assessment (1) Colitis Code(s): K52.9 - Noninfective gastroenteritis and colitis, unspecified Status : Acute (2) Nausea & vomiting Code(s): R11.2 - Nausea with vomiting, unspecified Status: Acute (3) Acute UTI Code(s): N39.0 - Urinary tract infection, site not specified Status: Acute (4) Acute hypokalemia Code(s): E87.6 - Hypokalemia Status: Acute - Plan 77-year-old female with 1. Acute colitis now with acute on chronic anemia-consult GI due to drop in hemoglobin. Continue with IV fluid hydration, IV Rocephin and add Flagyl to the regimen. Pain control and supportive care. 2. Hypokalemiareplete 3. Urinary tract infection Status post Rocephin IV 1 in ED, continue antibiotic pending urine culture 4. Acute renal injury Renal secondary to dehydration Clinical Sony improved with gentle IV fluid hydration and monitor BUN and creatinine Avoid all nephrotoxic drug 4. History of breast cancer with metastases Oncology consultation due to pancytopenia 5. History of lower extremity DVT Hold Eliquis due to decreased drop in hemoglobin 6. Acute on chronic anemiawell underlying GI bleedtransfused 2 units of packed red blood cells, GI consultation, PPI. Eliquis on hold 7. DVT prophylaxisEliquis on hold due to drop in hemoglobin today. (2) Nausea & vomiting Qualifiers: Vomiting type: unspecified Vomiting Intractability: intractable Qualified Code(s): R11.2 - Nausea with vomiting, unspecified
[2018-06-11] MEDS ORDERED: Sodium Chlor 0.9% Inj 250 ML IV.SIG SCH (12:00)
--- NOTE | 2018-06-11 13:14 | P.CONGI ---
History of Present Illness Consult date: 06/11/18 Consult reason: Colitis- anemia Chief complaint: Colitis, nausea and vomiting, UTI, Hypokalemia History of Present Illness: This is a 77 yo F with medical history significant for breast cancer with metastasis to the lung and she states bone, previous radiation to her right arm and current chemotherapy every three weeks. She presented to the ER yesterday with complaints of severe weakness that has been progressing over the past two to three weeks. States it got so severe that she felt like her legs would give out if she stood up. Also complaining of abdominal pain, states it has resolved , but was located in her lower abdomen. Described as a constant aching sensation. Associated with nausea and emesis but denies any emesis in the past week. Denies hematemesis and coffee ground emesis. Also reports diarrhea for two weeks, states was having multiple a day but has not had any BM in four days. Denies hematochezia and melena. Denies fecal urgency and incontinence. Pt had a CT scan which reveals some bowel wall thickening involving the large bowel which may indicate a mild colitis. She has also had a significant drop in hgb overnight with no obvious source of the bleeding. Pt reports she has needed 2 blood transfusions over the past four to six weeks due to anemia. She has never had an EGD. Reports a colonoscopy done in September of this year, she can not recall any abnormal findings. Of note, is on Eliquis for history of DVT , last dose received this morning. <Radha Tirado - Last Filed: 06/11/18 13:01> Review of Systems Constitutional: Reports fatigue, Reports lack of energy, Denies chills, Denies fever(s) Gastrointestinal: Reports abdominal pain, Reports loose stools, Reports nausea, Reports vomiting, Denies black, tarry stools, Denies bright, red blood in stools , Denies vomiting blood <Radha Tirado - Last Filed: 06/11/18 13:01> PMFSH - History History Provided By: Patient - Medical History Medical History: Medical History (Last Updated 06/10/18 @ 13:47 by Michelle Garvin) Anxiety Bone cancer Chronic kidney disease DVT (deep venous thrombosis) Former smoker Hypertension Hypothyroidism Insomnia Lung cancer - Family History Family History: Family History (Last Updated 06/10/18 @ 18:31 by Stone Santamaria MD) Other Colon cancer - Tobacco History Second Hand Smoke Exposure: No Tobacco Use In Past 30 Days: No Smoking Status: Former smoker - Alcohol History How Often Do You Have a Drink Containing Alcohol: Never - Substance Use History Substance History: No History of Abuse - Travel History Recent Travel in the [place] Within the Last 8 Weeks: No Recent Travel Out of the Country Within the Last 8 Weeks: No - Immunization History Tetanus Immunization: <5 Years Hx Influenza Vaccine This Season: No <Radha Tirado - Last Filed: 06/11/18 13:01> - Medical History Medical History: Medical History (Last Updated 06/10/18 @ 13:47 by Michelle Garvin) Anxiety Bone cancer Chronic kidney disease DVT (deep venous thrombosis) Former smoker Hypertension Hypothyroidism Insomnia Lung cancer - Family History Family History: Family History (Last Updated 06/10/18 @ 18:31 by Stone Santamaria MD) Other Colon cancer <Barry Sosa - Last Filed: 06/11/18 15:45> Medications and Allergies Active Medications: Active Medications Acetaminophen (Tylenol) 650 mg PO Q4H PRN PRN Reason: Temp > 100.4 Last Admin: 06/11/18 09:20 Dose: 650 mg Al Hydroxide/Mg Hydroxide (Milk Of Magntoya Liq) 30 ml PO Q12H PRN PRN Reason: Mild Constipation Albuterol (Duoneb Neb (Prn)) 1 ampul NEB Q2HR NEB PRN PRN Reason: SHORTNESS OF BREATH Apixaban (Eliquis) 2.5 mg PO BID [facility] Last Admin: 06/11/18 09:30 Dose: 2.5 mg Atorvastatin Calcium (Lipitor) 10 mg PO DAILY [facility] Last Admin: 06/11/18 09:30 Dose: 10 mg Folic Acid (Folic Acid) 1 mg PO DAILY [facility] Last Admin: 06/11/18 09:30 Dose: 1 mg Furosemide (Lasix) 20 mg PO DAILY [facility] Last Admin: 06/11/18 09:30 Dose: 20 mg Potassium Chloride/Sodium Chloride (Potassium Chlor 20 Meq/Nacl 0.45% Inj) 1, 000 mls @ 84 mls/hr IV.CONT .[id number] [facility] Last Admin: 06/11/18 09:29 Dose: 84 mls/hr Ceftriaxone Sodium 1,000 mg/ (Sodium Chloride) 100 mls @ 200 mls/hr IV.SIG Q24H [facility] Last Infusion: 06/11/18 10:33 Dose: Infused Sodium Chloride (Ns Inj) 250 mls @ 15 mls/hr IV.SIG ONCE [facility] Stop: 06/12/18 04:39 Levothyroxine Sodium (Synthroid) 25 mcg PO DAILY@0600 [facility] Last Admin: 06/11/18 05:55 Dose: 25 mcg Metronidazole (Flagyl) 500 mg PO Q8HR [facility] Ondansetron HCl (Zofran Inj) 4 mg IV.PUSH Q6H PRN PRN Reason: NAUSEA OR VOMITING Potassium Chloride (K-Dur) 20 meq PO DAILY [facility] Last Admin: 06/11/18 09:30 Dose: 20 meq Sodium Chloride (Ns Flush) 2 ml IV.FLUSH PRN PRN PRN Reason: FLUSH AFTER USING IV ACCESS Last Admin: 06/10/18 14:17 Dose: 2 ml Triamterene/HCTZ (Dyazide 37.5/25 Mg) 1 cap PO DAILY [facility] Last Admin: 06/11/18 09:19 Dose: 1 cap <Radha Tirado - Last Filed: 06/11/18 13:01> Active Medications: Active Medications Acetaminophen (Tylenol) 650 mg PO Q4H PRN PRN Reason: Temp > 100.4 Last Admin: 06/11/18 09:20 Dose: 650 mg Al Hydroxide/Mg Hydroxide (Milk Of Magnesia Liq) 30 ml PO Q12H PRN PRN Reason: Mild Constipation Albuterol (Duoneb Neb (Prn)) 1 ampul NEB Q2HR NEB PRN PRN Reason: SHORTNESS OF BREATH Apixaban (Eliquis) 2.5 mg PO BID [facility] Last Admin: 06/11/18 09:30 Dose: 2.5 mg Atorvastatin Calcium (Lipitor) 10 mg PO DAILY [facility] Last Admin: 06/11/18 09:30 Dose: 10 mg Folic Acid (Folic Acid) 1 mg PO DAILY [facility] Last Admin: 06/11/18 09:30 Dose: 1 mg Furosemide (Lasix) 20 mg PO DAILY [facility] Last Admin: 06/11/18 09:30 Dose: 20 mg Potassium Chloride/Sodium Chloride (Potassium Chlor 20 Meq/Nacl 0.45% Inj) 1, 000 mls @ 84 mls/hr IV.CONT .[id number] [facility] Last Admin: 06/11/18 09:29 Dose: 84 mls/hr Ceftriaxone Sodium 1,000 mg/ (Sodium Chloride) 100 mls @ 200 mls/hr IV.SIG Q24H [facility] Last Infusion: 06/11/18 10:33 Dose: Infused Sodium Chloride (Ns Inj) 250 mls @ 15 mls/hr IV.SIG ONCE [facility] Stop: 06/12/18 04:39 Last Admin: 06/11/18 15:00 Dose: 15 mls/hr Levothyroxine Sodium (Synthroid) 25 mcg PO DAILY@0600 [facility] Last Admin: 06/11/18 05:55 Dose: 25 mcg Metronidazole (Flagyl) 500 mg PO Q8HR [facility] Last Admin: 06/11/18 14:11 Dose: 500 mg Ondansetron HCl (Zofran Inj) 4 mg IV.PUSH Q6H PRN PRN Reason: NAUSEA OR VOMITING Polyethylene Glycol/Electrolytes (Colyte Liq) 4,000 ml PO ONCE ONE Stop: 06/14/18 16:01 Potassium Chloride (K-Dur) 20 meq PO DAILY [facility] Last Admin: 06/11/18 09:30 Dose: 20 meq Sodium Chloride (Ns Flush) 2 ml IV.FLUSH PRN PRN PRN Reason: FLUSH AFTER USING IV ACCESS Last Admin: 06/10/18 14:17 Dose: 2 ml Triamterene/HCTZ (Dyazide 37.5/25 Mg) 1 cap PO DAILY [facility] Last Admin: 06/11/18 09:19 Dose: 1 cap <Barry Sosa - Last Filed: 06/11/18 15:45> Allergies Allergy/AdvReac Type Severity Reaction Status Date / Time No Known Allergies Allergy Unknown Uncoded 11/03/17 08:29 Home Medications Medication Instructions Recorded Confirmed Type apixaban [Eliquis] 2.5 mg PO BID 06/10/18 06/10/18 History folic acid 1 mg PO DAILY 06/10/18 06/10/18 History furosemide 20 mg PO DAILY 06/10/18 06/10/18 History ibuprofen 800 mg PO TID PRN 06/10/18 06/10/18 History levothyroxine 25 mcg QAM 06/10/18 06/10/18 History lorazepam 0.5 mg PO DIRECTED 06/10/18 06/10/18 History potassium chloride 20 meq PO DAILY 06/10/18 06/10/18 History rosuvastatin 5 mg PO DAILY 06/10/18 06/10/18 History tizanidine 4 mg PO DAILY 06/10/18 06/10/18 History trazodone 50 mg PO DAILY 06/10/18 06/10/18 History triamterene-hydrochlorothiazid 37.5 mg PO DAILY 06/10/18 06/10/18 History Exam Vital signs: Vital Signs 06/10/18 14:11 06/10/18 16:00 06/10/18 17:00 Temperature Pulse Rate 91 H 81 80 Respiratory Rate 18 18 18 Blood Pressure 150/69 H 141/73 H 141/73 H Pulse Oximetry 96 96 95 06/10/18 20:00 06/11/18 00:00 06/11/18 07:52 Temperature 97.5 F L 97.0 F L 97.4 F L Pulse Rate 79 76 81 Respiratory Rate 16 17 20 Blood Pressure 168/71 H 150/70 H 127/76 Pulse Oximetry 95 97 95 06/11/18 12:00 Temperature 97.7 F Pulse Rate 77 Respiratory Rate 16 Blood Pressure 135/67 Pulse Oximetry 98 Intake & Output 06/10/18 06/11/18 06/11/18 18:59 06:59 18:59 Intake Total 1600 / 1600 600 / 600 1100 / 1100 Balance 1600 / 1600 600 / 600 1100 / 1100 Weight 70.307 kg 70.4 kg Intake: IV 1600 / 1600 1100 / 1100 Potassium Chlor 20 mEq/NACL 0. 1000 / 1000 45% Inj 1,000 ML @ 84 mls/hr IV .CONT .[id number] [facility] Rx#:[id number] NS Inj 1,000 ML @ Wide Open IV. 1000 / 1000 SIG BOLUS [facility] Rx#:[id number] NS Inj 500 ML @ Wide Open IV. 500 / 500 SIG BOLUS [facility] Rx#:[id number] Rocephin Inj 1,000 MG In NS Inj 100 / 100 100 / 100 100 ML @ 200 mls/hr IV.SIG Q24H [facility] Rx#:[id number] Oral 600 / 600 Other: # Voids 2 Date of Last Bowel Movement 06/10/18 <Radha Tirado - Last Filed: 09/13/18 13:01> Vital signs: Vital Signs 06/10/18 16:00 06/10/18 17:00 06/10/18 20:00 Temperature 97.5 F L Pulse Rate 81 80 79 Respiratory Rate 18 18 16 Blood Pressure 141/73 H 141/73 H 168/71 H Pulse Oximetry 96 95 95 06/11/18 00:00 06/11/18 07:52 06/11/18 12:00 Temperature 97.0 F L 97.4 F L 97.7 F Pulse Rate 76 81 77 Respiratory Rate 17 20 16 Blood Pressure 150/70 H 127/76 135/67 Pulse Oximetry 97 95 98 06/11/18 14:37 06/11/18 14:47 Temperature 97.8 F 97.9 F Pulse Rate 7 L 73 Respiratory Rate 18 18 Blood Pressure 147/83 H 150/81 H Pulse Oximetry 96 95 Intake & Output 06/10/18 06/11/18 06/11/18 18:59 06:59 18:59 Intake Total 1600 / 1600 600 / 600 1100 / 1100 Balance 1600 / 1600 600 / 600 1100 / 1100 Weight 70.307 kg 70.4 kg Intake: IV 1600 / 1600 1100 / 1100 Potassium Chlor 20 mEq/NACL 0. 1000 / 1000 45% Inj 1,000 ML @ 84 mls/hr IV .CONT .[id number] [facility] Rx#:[id number] NS Inj 1,000 ML @ Wide Open IV. 1000 / 1000 SIG BOLUS [facility] Rx#:[id number] NS Inj 500 ML @ Wide Open IV. 500 / 500 SIG BOLUS [facility] Rx#:[id number] Rocephin Inj 1,000 MG In NS Inj 100 / 100 100 / 100 100 ML @ 200 mls/hr IV.SIG Q24H [facility] Rx#:[id number] Oral 600 / 600 Intake (Blood Product) Amt 0 / 0 Rbc As-3 Leukoreduced Unit 0 / 0 [id number] Other: # Voids 2 Date of Last Bowel Movement 06/10/18 <Barry Sosa - Last Filed: 06/11/18 15:45> Results - Labs CBC & Chem 7: 06/11/18 06:00 06/11/18 06:00 Labs: Laboratory Results - last 24 hr 06/10/18 06/10/18 06/10/18 14:05 14:05 16:05 WBC 7.1 RBC 2.47 L Hgb 9.3 L Hct 25.5 L MCV 103.3 H MCH 37.7 H MCHC 36.5 H RDW 19.2 H Plt Count 31 L D MPV 7.5 Prelim Diff (Auto) Slide review pending Neut % (Auto) 79.0 H Lymph % (Auto) 14.7 Riley % (Auto) 6.1 Eos % (Auto) 0.0 Baso % (Auto) 0.2 Neut # (Auto) 5.6 Lymph # (Auto) 1.0 Riley # (Auto) 0.4 Eos # (Auto) 0.0 Baso # (Auto) 0.0 WBC Differential . Diff Scan Auto diff confirmed Differential Comment . Platelet Estimate Low L Platelet Morphology Normal Sodium 135 L Potassium 2.7 L* Chloride 95 L Carbon Dioxide 27.2 Anion Gap 13 BUN 23 H Creatinine 1.30 H Estimated GFR 40 L Random Glucose 143 H Calcium 8.7 Total Bilirubin 1.0 AST 34 ALT 28 Alkaline Phosphatase 46 Total Protein 7.2 Albumin 2.3 L Lipase 129 Urine Color Aurora Urine Clarity Cloudy H Urine pH 5.0 Ur Specific Quinter 1.016 Urine Protein 100 H Urine Glucose (UA) Negative Urine Ketones Trace H Urine Occult Blood Moderate H Urine Nitrate Positive H Urine Bilirubin Negative Urine Urobilinogen 2.0 H Ur Leukocyte Esterase Large H Urine RBC 4 H Urine WBC Urine WBC Clumps Occasional H Ur Squamous Epith Cells 7 Urine Bacteria Many H Hyaline Casts 2 Granular Casts 11 Urine Mucus Few H Micro UA Comment Culture indicated Ur Microscopic Review Not Reportable Urine Culture Comments Culture indicated MTS Gel Crossmatch 06/11/18 06/11/18 06/11/18 06:00 06:00 12:20 WBC 5.0 RBC 1.97 L Hgb 7.2 L D Hct 20.6 L* MCV 104.7 H MCH 36.8 H MCHC 35.1 RDW 19.0 H Plt Count 30 L MPV 9.0 Prelim Diff (Auto) Slide review pending Neut % (Auto) 65.0 Lymph % (Auto) 28.2 Riley % (Auto) 6.4 Eos % (Auto) 0.2 Baso % (Auto) 0.2 Neut # (Auto) 3.3 Lymph # (Auto) 1.4 Riley # (Auto) 0.3 Eos # (Auto) 0.0 Baso # (Auto) 0.0 WBC Differential . Diff Scan Auto diff confirmed Differential Comment . Platelet Estimate Low L Platelet Morphology Normal Sodium 134 L Potassium 3.3 L Chloride 100 Carbon Dioxide 23.1 Anion Gap 11 BUN 20 H Creatinine 1.14 H Estimated GFR 46 L Random Glucose 160 H Calcium 8.0 L Total Bilirubin 0.6 AST 28 ALT 25 Alkaline Phosphatase 43 L Total Protein 6.3 L D Albumin 2.1 L Lipase Urine Color Urine Clarity Urine pH Ur Specific Quinter Urine Protein Urine Glucose (UA) Urine Ketones Urine Occult Blood Urine Nitrate Urine Bilirubin Urine Urobilinogen Ur Leukocyte Esterase Urine RBC Urine WBC Urine WBC Clumps Ur Squamous Epith Cells Urine Bacteria Hyaline Casts Granular Casts Urine Mucus Micro UA Comment Ur Microscopic Review Urine Culture Comments MTS Gel Crossmatch See Detail - Imaging Impressions Abdomen/Pelvis CT 06/10/18 13:35 CONCLUSION: 1. Left lower lobe spiculated mass. 2. Fat-containing inguinal hernias. 3. Severe diverticulosis. 4. Small bowel wall thickening involving the large bowel which may reflect a mild colitis. <Radha Tirado - Last Filed: 06/11/18 13:01> - Labs CBC & Chem 7: 06/11/18 06:00 06/11/18 06:00 Labs: Laboratory Results - last 24 hr 06/10/18 06/10/18 06/11/18 14:05 16:05 06:00 WBC 5.0 RBC 1.97 L Hgb 7.2 L D Hct 20.6 L* MCV 104.7 H MCH 36.8 H MCHC 35.1 RDW 19.0 H Plt Count 30 L MPV 9.0 Prelim Diff (Auto) Slide review pending Neut % (Auto) 65.0 Lymph % (Auto) 28.2 Riley % (Auto) 6.4 Eos % (Auto) 0.2 Baso % (Auto) 0.2 Neut # (Auto) 3.3 Lymph # (Auto) 1.4 Riley # (Auto) 0.3 Eos # (Auto) 0.0 Baso # (Auto) 0.0 WBC Differential . . Diff Scan Auto diff confirmed Auto diff confirmed Differential Comment . Platelet Estimate Low L Low L Platelet Morphology Normal Normal Sodium Potassium Chloride Carbon Dioxide Anion Gap BUN Creatinine Estimated GFR Random Glucose Calcium Total Bilirubin AST ALT Alkaline Phosphatase Total Protein Albumin Urine Color Aurora Urine Clarity Cloudy H Urine pH 5.0 Ur Specific Quinter 1.016 Urine Protein 100 H Urine Glucose (UA) Negative Urine Ketones Trace H Urine Occult Blood Moderate H Urine Nitrate Positive H Urine Bilirubin Negative Urine Urobilinogen 2.0 H Ur Leukocyte Esterase Large H Urine RBC 4 H Urine WBC Urine WBC Clumps Occasional H Ur Squamous Epith Cells 7 Urine Bacteria Many H Hyaline Casts 2 Granular Casts 11 Urine Mucus Few H Micro UA Comment Culture indicated Ur Microscopic Review Not Reportable Urine Culture Comments Culture indicated Blood Type Antibody Screen MTS Gel Crossmatch 06/11/18 06/11/18 06:00 12:20 WBC RBC Hgb Hct MCV MCH MCHC RDW Plt Count MPV Prelim Diff (Auto) Neut % (Auto) Lymph % (Auto) Riley % (Auto) Eos % (Auto) Baso % (Auto) Neut # (Auto) Lymph # (Auto) Riley # (Auto) Eos # (Auto) Baso # (Auto) WBC Differential Diff Scan Differential Comment Platelet Estimate Platelet Morphology Sodium 134 L Potassium 3.3 L Chloride 100 Carbon Dioxide 23.1 Anion Gap 11 BUN 20 H Creatinine 1.14 H Estimated GFR 46 L Random Glucose 160 H Calcium 8.0 L Total Bilirubin 0.6 AST 28 ALT 25 Alkaline Phosphatase 43 L Total Protein 6.3 L D Albumin 2.1 L Urine Color Urine Clarity Urine pH Ur Specific Quinter Urine Protein Urine Glucose (UA) Urine Ketones Urine Occult Blood Urine Nitrate Urine Bilirubin Urine Urobilinogen Ur Leukocyte Esterase Urine RBC Urine WBC Urine WBC Clumps Ur Squamous Epith Cells Urine Bacteria Hyaline Casts Granular Casts Urine Mucus Micro UA Comment Ur Microscopic Review Urine Culture Comments Blood Type A Positive Antibody Screen Negative MTS Gel Crossmatch See Detail - Imaging Impressions Abdomen/Pelvis CT 06/10/18 13:35 CONCLUSION: 1. Left lower lobe spiculated mass. 2. Fat-containing inguinal hernias. 3. Severe diverticulosis. 4. Small bowel wall thickening involving the large bowel which may reflect a mild colitis. <Barry Sosa - Last Filed: 06/11/18 15:45> Assessment and Plan - Plan Assessment: - Anemia macrocytic, hyperchromic. Pt reports history of anemia, states has needed 2 blood transfusions over the past 4-6 weeks. No obvious source of GIB. Denies previous EGD. States colonoscopy in September of this year, can not recall any abnormal findings. Thinks it was done in [facility], no records of her at [facility], has not been previously seen by our service Of note, pt is on Eliquis for history of DVT, last dose was this morning - Colitis on imaging Pt reports nausea with emesis and diarrhea for two weeks, but has resolved over the past week and no BM x 4 days. Denies hematochezia, melena, hematemesis, and coffee ground emesis. Also was having lower abdominal pain, states constant, described as aching, now resolved. CT abdomen and pelvis W IV contrast --> Left lower lobe spiculated mass. Fat- containing inguinal hernias. Severe diverticulosis. Small bowel wall thickening involving the large bowel which may reflect a mild colitis. - Breast cancer with metastasis- receiving chemotherapy every three weeks Plan: EGD/colonoscopy Friday Obtain consent Clear liquids Friday Golytely prep NPO after MN Friday Hold Eliquis- given renal function needs to be held for 3 days OK to bridge with Lovenox of Heparin if needed, hold day of procedure- will leave to primary team Monitor H/H Continue abx for possible infectious colitis Stool samples Further recommendations to follow Pt has been seen and examined by myself and Dr. Sosa and this note is written on his behalf <Radha Tirado - Last Filed: 06/11/18 13:01> - Attending Attestation As above, seen with Radha. No signs of active GI bleeding clinically, will need EGD and Colonoscopy, patient took her Eliquis dose today. Will follow up for signs of bleeding over the next few days, will schedule EGD/ Colonoscopy Friday tentatively. Thank you for the consult. <Barry Sosa - Last Filed: 06/11/18 15:45>
[2018-06-11] MEDS: metroNIDAZOLE 500 MG Tablet PO SCH ×2 (14:11→22:00)
[2018-06-12] LABS: Iron 208 mcg/dL (50-170)
[2018-06-12 00:23] LABS: Activated Partial Thrombo Time 30.3 sec (24.3-30.1); INR 0.9 Ratio; Prothrombin Time 9.5 sec (9.8-11.6)
[2018-06-12 00:25] LABS: % Iron Saturation 97.7 % (20-50); Ferritin 5156 ng/mL (8-252); Lactate Dehydrogenase 219 U/L (84-246); Total Iron Binding Capacity 213 mcg/dL (250-450); Vitamin B12 1352 pg/mL (193-986)
--- NOTE | 2018-06-12 00:42 | MB ---
cc: Yumiko Mccollum MD DATE: 06/11/2018 CHIEF COMPLAINT: 1. History of metastatic lung adenocarcinoma. HISTORY OF PRESENT ILLNESS: Ms. Oreilly is a 77-year-old lady with a history of stage IV lung adenocarcinoma diagnosed in August of [address]-guided biopsy at [facility] of the left lung mass. The biopsy confirmed moderately differentiated adenocarcinoma of the lung studies TTF-1 positive and napsin positive, CARMELITA-3 negative, mammaglobin negative tumor consistent with a moderately differentiated adenocarcinoma. PET scan from 10/16/2017 showed a 3.8 x 2.86 cm mass in the left lower lobe, which was hypermetabolic with an SUV of 8.6. There was also a hypermetabolic lesion in the right proximal humerus with an SUV of 9.5. MRI of the humerus confirmed metastatic lesion in the proximal shaft of the right humerus with cortical thinning. No pathologic fracture. Molecular test showed PD-L1 less than 1%, EGFR wild type, ROS1 negative, ALK fusion negative. She has undergone treatment with carboplatin, Alimta and Keytruda. This was initiated in October 2017 and has been continuing to She also has a history of early stage breast cancer in 2012 with a normal mammogram. Biopsy confirmed invasive ductal carcinoma. She underwent lumpectomy with sentinel lymph node biopsy. Zero out of 6 lymph nodes were positive. The tumor size was 2.2 x 1.9 x 1.5 cm, which was well differentiated ductal carcinoma with no lymphovascular invasion. Margins were not involved. Pathologic staging was pT2N0. She underwent adjuvant radiation, ER positive, LA positive, and HER-negative tumor. Ki-67 was low. No adjuvant chemotherapy was given, and she was started on tamoxifen. She also has a history of a left lower extremity DVT and she is currently on Lovenox injections. She presents to the hospital on 06/10/2018 with intractable nausea, vomiting and abdominal pain. She was found to have a mild colitis as well as a low potassium at 2.7. She was treated with Rocephin for an abnormal UA. LABORATORY STUDIES: White blood cell count 5, hemoglobin 7.2, platelet count is 30,000. She has a normal differential. Chemistry studies with sodium 134, potassium 3.3, BUN 20, creatinine 1.14, total bilirubin 0.6, AST 28, ALT 25, alkaline phosphatase 43, total protein 6.3 and albumin is 2.1. It appears that in the past, her platelet count is normal. She has had some low values at 112 and 79. Her most recent chemotherapy was given on 05/31/2018. REVIEW OF SYSTEMS: As above in the HPI, all other review of systems are negative. PAST MEDICAL HISTORY: Hyperlipidemia, hypertension, hypothyroidism, osteoarthritis, osteopenia. PAST SURGICAL HISTORY: Hand surgery repair, vaginal prolapse, colonoscopy, lumpectomy, plastic surgery on eyes, hysterectomy. ALLERGIES: MONIKA INHIBITORS, AMLODIPINE STATINS. MEDICATIONS: Include: Calcium and vitamin D, Crestor, folic acid, Lasix, levothyroxine, Ativan, multivitamin, tamoxifen, temazepam, and vitamin B12. FAMILY HISTORY: No known family history of malignancy. SOCIAL HISTORY: The patient is a former smoker. She has a good support system with her . PHYSICAL EXAMINATION: VITAL SIGNS: Temperature 98.6, pulse 84, blood pressure 152/82 and pulse oximetry is 95% on room air. GENERAL: Thin, chronically ill-appearing lady in no distress. HEENT: Head is normocephalic, atraumatic. NECK: Supple. No palpable lymphadenopathy. CARDIOVASCULAR: Regular rate and rhythm. RESPIRATORY: Clear bilaterally. ABDOMEN: Soft and nondistended. Bowel sounds present. EXTREMITIES: No edema. NEUROLOGIC: Grossly nonfocal. PSYCHIATRIC: Appropriate mood and affect. ASSESSMENT AND PLAN: 1. Metastatic lung adenocarcinoma, currently on treatment with carboplatin, pemetrexed, and pembrolizumab. Her last chemotherapy dose was given on 05/31/2018. 2. Heme: The patient with anemia and thrombocytopenia. She does have a history of anemia, especially worsening since approximately February to March of this year, thrombocytopenia, suspect that this is due to chemotherapy with carboplatin and pemetrexed. We will perform evaluation to include LDH, haptoglobin, fibrinogen, coags and peripheral blood smear. Expect to see a rise within the next few days. Hematology service will continue to follow. MD ESHA Wooten/ , 08:09 PM , 08:18 PM [facility]evin
[2018-06-12] MEDS: metroNIDAZOLE 500 MG Tablet PO SCH ×3 (05:00→22:07)
[2018-06-12] MEDS: KCL 20 mEq/NACL 0.45% Inj 1,000 ML IV.CONT SCH ×3 (05:04→22:07)
[2018-06-12 06:13] LABS: Hematocrit 28.8 % (35.0-46.0); Hemoglobin 10.6 gm/dL (11.6-15.3); Mean Corpuscular Hemoglobin 35.4 pg (27.0-34.0); Mean Corpuscular Volume 96.2 fL (80.0-100.0); Mean Platelet Volume 8.7 fL (7.0-11.0); Platelet Count 29 th/mm3 (150-450); Red Blood Count 2.99 mil/mm3 (4.00-5.30); White Blood Count 5.1 th/mm3 (4.0-11.0)
[2018-06-12 06:14] LABS: Mean Corpuscular HGB Conc 36.8 % (32.0-36.0)
[2018-06-12 06:33] LABS: Calcium 7.4 mg/dL (8.5-10.1); Potassium 3.8 meq/L (3.5-5.1)
[2018-06-12 06:51] LABS: Total Protein 6.3 g/dL (6.4-8.2)
[2018-06-12 07:19] LABS: Lymphocytes 24 % (9-44); Monocytes 6 % (0-8)
[2018-06-12 07:28] LABS: Platelet Morphology Normal (Normal)
[2018-06-12] MEDS: Folic Acid 1 MG Tablet PO SCH (09:14)
[2018-06-12] MEDS: Furosemide 20 MG Tablet PO SCH (09:14)
--- NOTE | 2018-06-12 11:48 | P.PNIM ---
Subjective Interval history: Patient reports large amounts of loose stools. Has not seen blood in the stools. Still with extremely poor intake and only feels like she wants to drink water. Continues to have abdominal pain however improved overnight. Physical Exam Vital signs: Vital Signs 06/11/18 12:00 06/11/18 14:37 06/11/18 14:47 Temperature 97.7 F 97.8 F 97.9 F Pulse Rate 77 7 L 73 Respiratory Rate 16 18 18 Blood Pressure 135/67 147/83 H 150/81 H Pulse Oximetry 98 96 95 06/11/18 16:00 06/11/18 17:30 06/11/18 18:18 Temperature 97.2 F L 97.8 F 97.8 F Pulse Rate 82 88 88 Respiratory Rate 18 18 18 Blood Pressure 133/80 144/84 H 144/86 H Pulse Oximetry 100 94 L 06/11/18 18:37 06/11/18 18:49 06/11/18 20:00 Temperature 98 F 98.6 F 98.1 F Pulse Rate 82 84 78 Respiratory Rate 18 20 Blood Pressure 142/80 H 152/82 H 173/72 H Pulse Oximetry 95 20 L 97 06/12/18 00:00 Temperature 98.4 F Pulse Rate 86 Respiratory Rate 19 Blood Pressure 135/89 Pulse Oximetry 95 Intake & Output 06/11/18 06/12/18 06/12/18 18:59 06:59 18:59 Intake Total 1500 / 1500 500 / 500 100 / 100 Balance 1500 / 1500 500 / 500 100 / 100 Weight 70.4 kg Intake: IV 1100 / 1100 100 / 100 Potassium Chlor 20 mEq/NACL 0. 1000 / 1000 45% Inj 1,000 ML @ 84 mls/hr IV .CONT .[id number] IFTIKHAR Rx#:[id number] Rocephin Inj 1,000 MG In NS Inj 100 / 100 100 / 100 100 ML @ 200 mls/hr IV.SIG Q24H IFTIKHAR Rx#:[id number] Oral 500 / 500 Intake (Blood Product) Amt 400 / 400 0 / 0 Rbc As-3 Leukoreduced Unit 400 / 400 [id number] Rbc As-3 Leukoreduced Unit 0 / 0 0 / 0 [id number] Other: # Voids 3 Date of Last Bowel Movement 06/10/18 06/11/18 06/11/18 # Bowel Movements 1 Narrative: GENERAL: This is a well-nourished, well-developed patient, in no apparent distress. CARDIOVASCULAR: Regular rate and rhythm without murmurs, gallops, or rubs. RESPIRATORY: Clear to auscultation. Breath sounds equal bilaterally. No wheezes , rales, or rhonchi. GASTROINTESTINAL: Abdomen soft, mild tenderness of the left lower quadrant with no rebound guarding nondistended normoactive bowel sounds MUSCULOSKELETAL: Extremities without clubbing, cyanosis, or edema. NEURO: Alert & Oriented x4 to person, place, time, situation. Moves all ext x4 Results - Labs CBC & Chem 7: 06/12/18 06:00 06/12/18 06:00 Laboratory Results - last 24 hr 06/10/18 06/11/18 06/11/18 16:05 12:20 21:47 WBC RBC Hgb Hct MCV MCH MCHC RDW Plt Count MPV Prelim Diff (Auto) WBC Differential Seg Neuts % (Manual) Band Neuts % (Manual) Lymphocytes % (Manual) Monocytes % (Manual) Abs Neuts (Manual) Differential Comment Platelet Estimate Platelet Morphology Smear Path Review Haptoglobin PT INR APTT Fibrinogen Sodium Potassium Chloride Carbon Dioxide Anion Gap BUN Creatinine Estimated GFR Random Glucose Calcium Prot Corrected Calcium Iron TIBC % Saturation Ferritin Lactate Dehydrogenase Total Protein Vitamin B12 Folate Urine Color [place] Urine Clarity Cloudy H Urine pH 5.0 Ur Specific [place] 1.016 Urine Protein 100 H Urine Glucose (UA) Negative Urine Ketones Trace H Urine Occult Blood Moderate H Urine Nitrate Positive H Urine Bilirubin Negative Urine Urobilinogen 2.0 H Ur Leukocyte Esterase Large H Urine RBC 4 H Urine WBC Urine WBC Clumps Occasional H Ur Squamous Epith Cells 7 Urine Bacteria Many H Hyaline Casts 2 Granular Casts 11 Urine Mucus Few H Micro UA Comment Culture indicated Urine Culture Comments Culture indicated Stl C.difficile Tox PCR Negative St C. diff Tox Epid 027 Negative Blood Type A Positive Antibody Screen Negative MTS Gel Crossmatch See Detail 06/11/18 06/11/18 06/11/18 23:23 23:23 23:23 WBC RBC Hgb Hct MCV MCH MCHC RDW Plt Count MPV Prelim Diff (Auto) WBC Differential Seg Neuts % (Manual) Band Neuts % (Manual) Lymphocytes % (Manual) Monocytes % (Manual) Abs Neuts (Manual) Differential Comment Platelet Estimate Platelet Morphology Smear Path Review Haptoglobin 365 H PT 9.5 L INR 0.9 APTT 30.3 H Fibrinogen 751 H Sodium Potassium Chloride Carbon Dioxide Anion Gap BUN Creatinine Estimated GFR Random Glucose Calcium Prot Corrected Calcium Iron 208 H TIBC 213 L % Saturation 97.7 H Ferritin 5156 H Lactate Dehydrogenase 219 Total Protein Vitamin B12 1352 H Folate Greater than 20.0 H Urine Color Urine Clarity Urine pH Ur Specific [place] Urine Protein Urine Glucose (UA) Urine Ketones Urine Occult Blood Urine Nitrate Urine Bilirubin Urine Urobilinogen Ur Leukocyte Esterase Urine RBC Urine WBC Urine WBC Clumps Ur Squamous Epith Cells Urine Bacteria Hyaline Casts Granular Casts Urine Mucus Micro UA Comment Urine Culture Comments Stl C.difficile Tox PCR St C. diff Tox Epid 027 Blood Type Antibody Screen MTS Gel Crossmatch 06/12/18 06/12/18 06:00 06:00 WBC 5.1 RBC 2.99 L Hgb 10.6 L D Hct 28.8 L MCV 96.2 D MCH 35.4 H MCHC 36.8 H RDW 18.0 H Plt Count 29 L MPV 8.7 Prelim Diff (Auto) Manual diff required WBC Differential Manual diff final Seg Neuts % (Manual) 69 Band Neuts % (Manual) 1 Lymphocytes % (Manual) 24 Monocytes % (Manual) 6 Abs Neuts (Manual) 3.6 Differential Comment . Platelet Estimate Low L Platelet Morphology Normal Smear Path Review Haptoglobin PT INR APTT Fibrinogen Sodium 135 L Potassium 3.8 Chloride 102 Carbon Dioxide 24.0 Anion Gap 9 BUN 14 Creatinine 0.98 Estimated GFR 55 L Random Glucose 103 Calcium 7.4 L* Prot Corrected Calcium 7.8 L Iron TIBC % Saturation Ferritin Lactate Dehydrogenase Total Protein 6.3 L Vitamin B12 Folate Urine Color Urine Clarity Urine pH Ur Specific [place] Urine Protein Urine Glucose (UA) Urine Ketones Urine Occult Blood Urine Nitrate Urine Bilirubin Urine Urobilinogen Ur Leukocyte Esterase Urine RBC Urine WBC Urine WBC Clumps Ur Squamous Epith Cells Urine Bacteria Hyaline Casts Granular Casts Urine Mucus Micro UA Comment Urine Culture Comments Stl C.difficile Tox PCR St C. diff Tox Epid 027 Blood Type Antibody Screen MTS Gel Crossmatch Microbiology 06/10/18 16:05 Clean Catch Urine Urine Culture - Preliminary Escherichia coli 06/11/18 21:47 Stool Stool Occult Blood (AILEEN) - Final Hemoccult negative Assessment and Plan - Assessment (1) Colitis Code(s): K52.9 - Noninfective gastroenteritis and colitis, unspecified Status : Acute (2) Nausea & vomiting Code(s): R11.2 - Nausea with vomiting, unspecified Status: Acute (3) Acute UTI Code(s): N39.0 - Urinary tract infection, site not specified Status: Acute (4) Acute hypokalemia Code(s): E87.6 - Hypokalemia Status: Acute - Plan 77-year-old female with 1. Acute colitis now with acute on chronic anemia-status post GI consultation due to to drop in hemoglobin to rule out GI bleed, Hemoccult negative. Eliquis has been on hold for EGD colonoscopy on Friday for further workup evaluation. Continue with IV fluid hydration, IV Rocephin and add Flagyl to the regimen. Pain control and supportive care. 2. Hypokalemiareplete 3. E. coli urinary tract infection in a patient with immunosuppression due to being on chemo Continue IV Rocephin 4. Acute renal injury Renal secondary to dehydration Clinically improved with gentle IV fluid hydration and monitor BUN and creatinine Avoid nephrotoxic drugs 4. History of breast cancer with metastases Appreciate oncology consultation due to pancytopenia 5. History of lower extremity DVT Hold Eliquis due to decreased drop in hemoglobin and also for pending EGD colonoscopy Due to Hemoccult negative will start low-dose Lovenox. 6. Acute on chronic anemiarule out underlying GI bleedstatus post transfused 2 units of packed red blood cells with stable hemoglobin, continue PPI. Eliquis on hold, monitor closely on Lovenox. 7. DVT prophylaxisEliquis on hold due to drop in hemoglobin previously start low-dose Lovenox. (2) Nausea & vomiting Qualifiers: Vomiting type: unspecified Vomiting Intractability: intractable Qualified Code(s): R11.2 - Nausea with vomiting, unspecified
[2018-06-12] MEDS ORDERED: Loperamide 2 MG Capsule PO ONE (13:00)
[2018-06-12] MEDS ORDERED: Enoxaparin Inj 40 MG/0.4 ML Syringe SQ SCH (13:00)
--- NOTE | 2018-06-12 14:52 | P.PNGI ---
Subjective Interval history: Patient is resting in the bed sipping on full liquids but states she would rather have solid food. Still having some lower abdominal cramping dark brown stools but no obvious blood. No current nausea no vomiting current hemoglobin 10.6. <Lu Benietz - Last Filed: 06/12/18 14:54> Physical Exam Vital signs: Vital Signs 06/11/18 14:47 06/11/18 16:00 06/11/18 17:30 Temperature 97.9 F 97.2 F L 97.8 F Pulse Rate 73 82 88 Respiratory Rate 18 18 18 Blood Pressure 150/81 H 133/80 144/84 H Pulse Oximetry 95 100 94 L 06/11/18 18:18 06/11/18 18:37 06/11/18 18:49 Temperature 97.8 F 98 F 98.6 F Pulse Rate 88 82 84 Respiratory Rate 18 18 Blood Pressure 144/86 H 142/80 H 152/82 H Pulse Oximetry 95 20 L 06/11/18 20:00 06/12/18 00:00 Temperature 98.1 F 98.4 F Pulse Rate 78 86 Respiratory Rate 20 19 Blood Pressure 173/72 H 135/89 Pulse Oximetry 97 95 Intake & Output 06/11/18 06/12/18 06/12/18 18:59 06:59 18:59 Intake Total 1500 / 1500 500 / 500 1115 / 1115 Balance 1500 / 1500 500 / 500 1115 / 1115 Weight 70.4 kg Intake: IV 1100 / 1100 1115 / 1115 Potassium Chlor 20 mEq/NACL 0. 1000 / 1000 1000 / 1000 45% Inj 1,000 ML @ 84 mls/hr IV .CONT .[id number] IFTIKHAR Rx#:[id number] NS Inj 250 ML @ 15 mls/hr IV. 15 / 15 SIG ONCE IFTIKHAR Rx#:[id number] Rocephin Inj 1,000 MG In NS Inj 100 / 100 100 / 100 100 ML @ 200 mls/hr IV.SIG Q24H IFTIKHAR Rx#:[id number] Oral 500 / 500 Intake (Blood Product) Amt 400 / 400 0 / 0 Rbc As-3 Leukoreduced Unit 400 / 400 [id number] Rbc As-3 Leukoreduced Unit 0 / 0 0 / 0 [id number] Other: # Voids 3 Date of Last Bowel Movement 06/10/18 06/11/18 06/11/18 # Bowel Movements 1 - Constitutional mild distress, obese - Routine HEENT Exam ENT: Present: mucous membranes moist - Routine Neck Exam Present: supple - Routine Respiratory Exam Present: accessory muscle use (Even, unlabored at rest) - Routine Cardiovascular Exam Present: S1, S2 - Routine Abdominal Exam Present: soft, normoactive bowel sounds (Round, some lower abdominal cramping off and on) - Routine Skin Exam Present: intact, pallor <Lu Benitez - Last Filed: 06/12/18 14:54> Vital signs: Vital Signs 06/11/18 18:49 06/11/18 20:00 06/12/18 00:00 Temperature 98.6 F 98.1 F 98.4 F Pulse Rate 84 78 86 Respiratory Rate 20 19 Blood Pressure 152/82 H 173/72 H 135/89 Pulse Oximetry 20 L 97 95 Intake & Output 06/11/18 06/12/18 06/12/18 18:59 06:59 18:59 Intake Total 1500 / 1500 500 / 500 1914 Balance 1500 / 1500 500 / 500 1914 / 1914 Weight 70.4 kg Intake: IV 1100 / 1100 1115 / 1115 Potassium Chlor 20 mEq/NACL 0. 1000 / 1000 1000 / 1000 45% Inj 1,000 ML @ 84 mls/hr IV .CONT .[id number] IFTIKHAR Rx#:[id number] NS Inj 250 ML @ 15 mls/hr IV. 15 / 15 SIG ONCE IFTIKHAR Rx#:[id number] Rocephin Inj 1,000 MG In NS Inj 100 / 100 100 / 100 100 ML @ 200 mls/hr IV.SIG Q24H IFTIKHAR Rx#:[id number] Oral 500 / 500 800 / 800 Intake (Blood Product) Amt 400 / 400 0 / 0 Rbc As-3 Leukoreduced Unit 400 / 400 [id number] Rbc As-3 Leukoreduced Unit 0 / 0 0 / 0 [id number] Other: # Voids 3 3 Date of Last Bowel Movement 06/10/18 06/11/18 06/11/18 # Bowel Movements 1 7 <Barry Sosa - Last Filed: 06/12/18 18:47> Results - Labs CBC & Chem 7: 06/12/18 06:00 06/12/18 06:00 Laboratory Results - last 24 hr 06/10/18 06/11/18 06/11/18 16:05 12:20 21:47 WBC RBC Hgb Hct MCV MCH MCHC RDW Plt Count MPV Prelim Diff (Auto) WBC Differential Seg Neuts % (Manual) Band Neuts % (Manual) Lymphocytes % (Manual) Monocytes % (Manual) Abs Neuts (Manual) Differential Comment Platelet Estimate Platelet Morphology Smear Path Review Haptoglobin PT INR APTT Fibrinogen Sodium Potassium Chloride Carbon Dioxide Anion Gap BUN Creatinine Estimated GFR Random Glucose Calcium Prot Corrected Calcium Iron TIBC % Saturation Ferritin Lactate Dehydrogenase Total Protein Vitamin B12 Folate Urine Color [place] Urine Clarity Cloudy H Urine pH 5.0 Ur Specific [place] 1.016 Urine Protein 100 H Urine Glucose (UA) Negative Urine Ketones Trace H Urine Occult Blood Moderate H Urine Nitrate Positive H Urine Bilirubin Negative Urine Urobilinogen 2.0 H Ur Leukocyte Esterase Large H Urine RBC 4 H Urine WBC Urine WBC Clumps Occasional H Ur Squamous Epith Cells 7 Urine Bacteria Many H Hyaline Casts 2 Granular Casts 11 Urine Mucus Few H Micro UA Comment Culture indicated Urine Culture Comments Culture indicated Stl C.difficile Tox PCR Negative St C. diff Tox Epid 027 Negative Blood Type A Positive Antibody Screen Negative MTS Gel Crossmatch See Detail 06/11/18 06/11/18 06/11/18 23:23 23:23 23:23 WBC RBC Hgb Hct MCV MCH MCHC RDW Plt Count MPV Prelim Diff (Auto) WBC Differential Seg Neuts % (Manual) Band Neuts % (Manual) Lymphocytes % (Manual) Monocytes % (Manual) Abs Neuts (Manual) Differential Comment Platelet Estimate Platelet Morphology Smear Path Review Haptoglobin 365 H PT 9.5 L INR 0.9 APTT 30.3 H Fibrinogen 751 H Sodium Potassium Chloride Carbon Dioxide Anion Gap BUN Creatinine Estimated GFR Random Glucose Calcium Prot Corrected Calcium Iron 208 H TIBC 213 L % Saturation 97.7 H Ferritin 5156 H Lactate Dehydrogenase 219 Total Protein Vitamin B12 1352 H Folate Greater than 20.0 H Urine Color Urine Clarity Urine pH Ur Specific [place] Urine Protein Urine Glucose (UA) Urine Ketones Urine Occult Blood Urine Nitrate Urine Bilirubin Urine Urobilinogen Ur Leukocyte Esterase Urine RBC Urine WBC Urine WBC Clumps Ur Squamous Epith Cells Urine Bacteria Hyaline Casts Granular Casts Urine Mucus Micro UA Comment Urine Culture Comments Stl C.difficile Tox PCR St C. diff Tox Epid 027 Blood Type Antibody Screen MTS Gel Crossmatch 06/12/18 06/12/18 06:00 06:00 WBC 5.1 RBC 2.99 L Hgb 10.6 L D Hct 28.8 L MCV 96.2 D MCH 35.4 H MCHC 36.8 H RDW 18.0 H Plt Count 29 L MPV 8.7 Prelim Diff (Auto) Manual diff required WBC Differential Manual diff final Seg Neuts % (Manual) 69 Band Neuts % (Manual) 1 Lymphocytes % (Manual) 24 Monocytes % (Manual) 6 Abs Neuts (Manual) 3.6 Differential Comment . Platelet Estimate Low L Platelet Morphology Normal Smear Path Review Haptoglobin PT INR APTT Fibrinogen Sodium 135 L Potassium 3.8 Chloride 102 Carbon Dioxide 24.0 Anion Gap 9 BUN 14 Creatinine 0.98 Estimated GFR 55 L Random Glucose 103 Calcium 7.4 L* Prot Corrected Calcium 7.8 L Iron TIBC % Saturation Ferritin Lactate Dehydrogenase Total Protein 6.3 L Vitamin B12 Folate Urine Color Urine Clarity Urine pH Ur Specific [place] Urine Protein Urine Glucose (UA) Urine Ketones Urine Occult Blood Urine Nitrate Urine Bilirubin Urine Urobilinogen Ur Leukocyte Esterase Urine RBC Urine WBC Urine WBC Clumps Ur Squamous Epith Cells Urine Bacteria Hyaline Casts Granular Casts Urine Mucus Micro UA Comment Urine Culture Comments Stl C.difficile Tox PCR St C. diff Tox Epid 027 Blood Type Antibody Screen MTS Gel Crossmatch Microbiology 06/11/18 21:47 Stool Enteric Pathogens (PCR) - Final 06/10/18 16:05 Clean Catch Urine Urine Culture - Preliminary Escherichia coli 06/11/18 21:47 Stool Stool Occult Blood (AILEEN) - Final Hemoccult negative <Lu Benitez - Last Filed: 06/12/18 14:54> - Labs CBC & Chem 7: 06/12/18 06:00 06/12/18 06:00 Laboratory Results - last 24 hr 06/11/18 06/11/18 06/11/18 12:20 21:47 23:23 WBC RBC Hgb Hct MCV MCH MCHC RDW Plt Count MPV Prelim Diff (Auto) WBC Differential Seg Neuts % (Manual) Band Neuts % (Manual) Lymphocytes % (Manual) Monocytes % (Manual) Abs Neuts (Manual) Differential Comment Platelet Estimate Platelet Morphology Smear Path Review Haptoglobin PT INR APTT Fibrinogen Sodium Potassium Chloride Carbon Dioxide Anion Gap BUN Creatinine Estimated GFR Random Glucose Calcium Prot Corrected Calcium Iron TIBC % Saturation Ferritin Lactate Dehydrogenase Total Protein Vitamin B12 Folate Stl C.difficile Tox PCR Negative St C. diff Tox Epid 027 Negative MTS Gel Crossmatch See Detail 06/11/18 06/11/18 06/12/18 23:23 23:23 06:00 WBC 5.1 RBC 2.99 L Hgb 10.6 L D Hct 28.8 L MCV 96.2 D MCH 35.4 H MCHC 36.8 H RDW 18.0 H Plt Count 29 L MPV 8.7 Prelim Diff (Auto) Manual diff required WBC Differential Manual diff final Seg Neuts % (Manual) 69 Band Neuts % (Manual) 1 Lymphocytes % (Manual) 24 Monocytes % (Manual) 6 Abs Neuts (Manual) 3.6 Differential Comment . Platelet Estimate Low L Platelet Morphology Normal Smear Path Review Haptoglobin 365 H PT 9.5 L INR 0.9 APTT 30.3 H Fibrinogen 751 H Sodium Potassium Chloride Carbon Dioxide Anion Gap BUN Creatinine Estimated GFR Random Glucose Calcium Prot Corrected Calcium Iron 208 H TIBC 213 L % Saturation 97.7 H Ferritin 5156 H Lactate Dehydrogenase 219 Total Protein Vitamin B12 1352 H Folate Greater than 20.0 H Stl C.difficile Tox PCR St C. diff Tox Epid 027 MTS Gel Crossmatch 06/12/18 06:00 WBC RBC Hgb Hct MCV MCH MCHC RDW Plt Count MPV Prelim Diff (Auto) WBC Differential Seg Neuts % (Manual) Band Neuts % (Manual) Lymphocytes % (Manual) Monocytes % (Manual) Abs Neuts (Manual) Differential Comment Platelet Estimate Platelet Morphology Smear Path Review Haptoglobin PT INR APTT Fibrinogen Sodium 135 L Potassium 3.8 Chloride 102 Carbon Dioxide 24.0 Anion Gap 9 BUN 14 Creatinine 0.98 Estimated GFR 55 L Random Glucose 103 Calcium 7.4 L* Prot Corrected Calcium 7.8 L Iron TIBC % Saturation Ferritin Lactate Dehydrogenase Total Protein 6.3 L Vitamin B12 Folate Stl C.difficile Tox PCR St C. diff Tox Epid 027 MTS Gel Crossmatch Microbiology 06/11/18 21:47 Stool Enteric Pathogens (PCR) - Final 06/10/18 16:05 Clean Catch Urine Urine Culture - Preliminary Escherichia coli 06/11/18 21:47 Stool Stool Occult Blood (AILEEN) - Final Hemoccult negative <Barry Sosa - Last Filed: 06/12/18 18:47> Assessment and Plan - Plan Assessment: - Anemia macrocytic, hyperchromic. Pt reports history of anemia, states has needed 2 blood transfusions over the past 4-6 weeks. No obvious source of GIB. Denies previous EGD. States colonoscopy in September of this year, can not recall any abnormal findings. Thinks it was done in [facility], no records of her at [facility], has not been previously seen by our service Of note, pt is on Eliquis for history of DVT, last dose was this morning - Colitis on imaging Pt reports nausea with emesis and diarrhea for two weeks, but has resolved over the past week and no BM x 4 days. Denies hematochezia, melena, hematemesis, and coffee ground emesis. Also was having lower abdominal pain, states constant, described as aching, now resolved. CT abdomen and pelvis W IV contrast --> Left lower lobe spiculated mass. Fat- containing inguinal hernias. Severe diverticulosis. Small bowel wall thickening involving the large bowel which may reflect a mild colitis. - Breast cancer with metastasis- receiving chemotherapy every three weeks 06/12/2018 patient is resting in the bed tolerating full liquids without nausea vomiting but does not care for full liquids. States she would rather have regular food. Still complaining of some lower abdominal cramping often known dull ache and diarrhea stools at least 5 times today. We will continue some mild bowel rest IV fluids and hydration, and plan EGD colonoscopy for Friday. Continue to hold Eliquis for now. Stool samples are negative for any C. difficile toxins, no enteric pathogens other stool studies are pending. Discussed plan of care for EGD colonoscopy and bowel prep. Plan Diet to full liquids for now Obtain consent for EGD colonoscopy 06/15/2018 Clear liquids Friday Golytely prep NPO after MN Friday Continue to hold Eliquis Folic acid daily Flagyl, IV antibiotics Monitor labs including hemoglobin and WBC count, transfuse as needed Further recommendations to follow Patient was seen per myself and Dr. Sosa, note was written on his behalf <Lu Benitez - Last Filed: 06/12/18 14:54> - Attending Attestation As above, will start bowel prep for friday, continue holding Eliquis for now. Dr Rivas will cover the service starting tomorrow. <Barry Sosa - Last Filed: 06/12/18 18:47>
--- NOTE | 2018-06-12 18:56 | P.PNONC ---
Subjective Interval history: Resting in bed Reports fatigue, continued diarrhea. Objective Vital Signs/Intake & Output: Vital Signs 06/11/18 20:00 06/12/18 00:00 Temperature 98.1 F 98.4 F Pulse Rate 78 86 Respiratory Rate 20 19 Blood Pressure 173/72 H 135/89 Pulse Oximetry 97 95 Intake & Output 06/11/18 06/12/18 06/12/18 18:59 06:59 18:59 Intake Total 1500 / 1500 500 / 500 1914 Balance 1500 / 1500 500 / 500 1914 Weight 70.4 kg Intake: IV 1100 / 1100 1115 / 1115 Potassium Chlor 20 mEq/NACL 0. 1000 / 1000 1000 / 1000 45% Inj 1,000 ML @ 84 mls/hr IV .CONT .[id number] IFTIKHAR Rx#:[id number] NS Inj 250 ML @ 15 mls/hr IV. 15 / 15 SIG ONCE IFTIKHAR Rx#:[id number] Rocephin Inj 1,000 MG In NS Inj 100 / 100 100 / 100 100 ML @ 200 mls/hr IV.SIG Q24H IFTIKHAR Rx#:[id number] Oral 500 / 500 800 / 800 Intake (Blood Product) Amt 400 / 400 0 / 0 Rbc As-3 Leukoreduced Unit 400 / 400 [id number] Rbc As-3 Leukoreduced Unit 0 / 0 0 / 0 [id number] Other: # Voids 3 3 Date of Last Bowel Movement 06/10/18 06/11/18 06/11/18 # Bowel Movements 1 7 Result Diagrams: 06/12/18 06:00 06/12/18 06:00 Laboratory Results: Laboratory Results - last 24 hr 06/11/18 06/11/18 06/11/18 12:20 21:47 23:23 WBC RBC Hgb Hct MCV MCH MCHC RDW Plt Count MPV Prelim Diff (Auto) WBC Differential Seg Neuts % (Manual) Band Neuts % (Manual) Lymphocytes % (Manual) Monocytes % (Manual) Abs Neuts (Manual) Differential Comment Platelet Estimate Platelet Morphology Smear Path Review Haptoglobin PT INR APTT Fibrinogen Sodium Potassium Chloride Carbon Dioxide Anion Gap BUN Creatinine Estimated GFR Random Glucose Calcium Prot Corrected Calcium Iron TIBC % Saturation Ferritin Lactate Dehydrogenase Total Protein Vitamin B12 Folate Stl C.difficile Tox PCR Negative St C. diff Tox Epid 027 Negative MTS Gel Crossmatch See Detail 06/11/18 06/11/18 06/12/18 23:23 23:23 06:00 WBC 5.1 RBC 2.99 L Hgb 10.6 L D Hct 28.8 L MCV 96.2 D MCH 35.4 H MCHC 36.8 H RDW 18.0 H Plt Count 29 L MPV 8.7 Prelim Diff (Auto) Manual diff required WBC Differential Manual diff final Seg Neuts % (Manual) 69 Band Neuts % (Manual) 1 Lymphocytes % (Manual) 24 Monocytes % (Manual) 6 Abs Neuts (Manual) 3.6 Differential Comment . Platelet Estimate Low L Platelet Morphology Normal Smear Path Review Haptoglobin 365 H PT 9.5 L INR 0.9 APTT 30.3 H Fibrinogen 751 H Sodium Potassium Chloride Carbon Dioxide Anion Gap BUN Creatinine Estimated GFR Random Glucose Calcium Prot Corrected Calcium Iron 208 H TIBC 213 L % Saturation 97.7 H Ferritin 5156 H Lactate Dehydrogenase 219 Total Protein Vitamin B12 1352 H Folate Greater than 20.0 H Stl C.difficile Tox PCR St C. diff Tox Epid 027 MTS Gel Crossmatch 06/12/18 06:00 WBC RBC Hgb Hct MCV MCH MCHC RDW Plt Count MPV Prelim Diff (Auto) WBC Differential Seg Neuts % (Manual) Band Neuts % (Manual) Lymphocytes % (Manual) Monocytes % (Manual) Abs Neuts (Manual) Differential Comment Platelet Estimate Platelet Morphology Smear Path Review Haptoglobin PT INR APTT Fibrinogen Sodium 135 L Potassium 3.8 Chloride 102 Carbon Dioxide 24.0 Anion Gap 9 BUN 14 Creatinine 0.98 Estimated GFR 55 L Random Glucose 103 Calcium 7.4 L* Prot Corrected Calcium 7.8 L Iron TIBC % Saturation Ferritin Lactate Dehydrogenase Total Protein 6.3 L Vitamin B12 Folate Stl C.difficile Tox PCR St C. diff Tox Epid 027 MTS Gel Crossmatch Culture Results: Microbiology 06/11/18 21:47 Enteric Pathogens (PCR) - Final Stool 06/10/18 16:05 Urine Culture - Preliminary Clean Catch Urine Escherichia coli 06/11/18 21:47 Stool Occult Blood (AILEEN) - Final Stool Hemoccult negative Medications: Active Medications Generic Name Dose Route Start Last Admin Trade Name Freq PRN Reason Stop Dose Admin Acetaminophen 650 mg 06/10/18 18:07 06/11/18 09:20 Tylenol PO 650 mg Q4H PRN Administration Temp > 100.4 Apixaban 2.5 mg 06/10/18 21:00 06/11/18 09:30 Eliquis PO 2.5 mg BID IFTIKHAR Administration Atorvastatin Calcium 10 mg 06/11/18 09:00 06/12/18 09:14 Lipitor PO 10 mg DAILY IFTIKHAR Administration Enoxaparin Sodium 40 mg 06/12/18 13:00 06/12/18 12:43 Lovenox Inj SQ 40 mg Q24H IFTIKHAR Administration Folic Acid 1 mg 06/11/18 09:00 06/12/18 09:14 Folic Acid PO 1 mg DAILY IFTIKHAR Administration Furosemide 20 mg 06/11/18 09:00 06/12/18 09:14 Lasix PO 20 mg DAILY IFTIKHAR Administration Potassium Chloride/Sodium Chloride 1,000 mls @ 84 mls/hr 06/10/18 20:00 06/12 14:09 Potassium Chlor 20 Meq/Nacl 0.45% Inj IV.CONT Infused .[id number] IFTIKHAR Infusion Ceftriaxone Sodium 1,000 mg/ 100 mls @ 200 mls/hr 06/11/18 09:00 06/12/18 10: 31 Sodium Chloride IV.SIG Infused Q24H IFTIKHAR Infusion Levothyroxine Sodium 25 mcg 06/10/18 20:00 06/12/18 05:01 Synthroid PO 25 mcg DAILY@0600 IFTIKHAR Administration Metronidazole 500 mg 06/11/18 14:00 06/12/18 13:17 Flagyl PO 500 mg Q8HR IFTIKHAR Administration Potassium Chloride 20 meq 06/10/18 20:00 06/12/18 09:14 K-Dur PO 20 meq DAILY IFTIKHAR Administration Sodium Chloride 2 ml 06/10/18 13:35 06/10/18 14:17 Ns Flush IV.FLUSH 2 ml PRN PRN Administration FLUSH AFTER USING IV ACCESS Triamterene/HCTZ 1 cap 06/11/18 09:00 06/12/18 09:14 Dyazide 37.5/25 Mg PO 1 cap DAILY IFTIKHAR Administration Objective Remarks: GENERAL: elderly lady in no distress SKIN: Warm and dry. HEAD: Normocephalic. EYES: No scleral icterus. No injection or drainage. RESPIRATORY: No accessory muscle use. NEUROLOGICAL: No obvious focal deficit. Awake, alert, and oriented x3. PSYCHIATRIC: Appropriate mood and affect; insight and judgment normal. Assessment/Plan - Plan 1. Stage IV lung adenocarcinoma, currently being treated with chemotherapy and pembrolizumab. 2. Heme: anemia, thrombocytopenia due to chemotherapy, anemia of chronic disease. 3. ID: evidence of colitis. GI team following, plan on colonoscopy Friday.
[2018-06-12] MEDS: Calcium Carbonate 500 MG Tablet PO SCH (22:07)
[2018-06-13] MEDS: metroNIDAZOLE 500 MG Tablet PO SCH ×4 (05:46→21:03)
[2018-06-13] MEDS: KCL 20 mEq/NACL 0.45% Inj 1,000 ML IV.CONT SCH ×4 (05:47→20:56)
[2018-06-13 06:12] LABS: Baso % (Auto) 0.1 % (0.0-2.0); Eos % (Auto) 0.2 % (0.0-4.0); Hematocrit 30.4 % (35.0-46.0); Hemoglobin 10.9 gm/dL (11.6-15.3); Lymph # (Auto) 1.4 th/mm3 (1.0-4.8); Lymph % (Auto) 31.7 % (9.0-44.0); Mean Corpuscular HGB Conc 35.8 % (32.0-36.0); Mean Corpuscular Hemoglobin 34.9 pg (27.0-34.0); Mean Corpuscular Volume 97.7 fL (80.0-100.0); Mean Platelet Volume 8.3 fL (7.0-11.0); Mono # (Auto) 0.5 th/mm3 (0.0-0.9); Neut # (Auto) 2.6 th/mm3 (1.8-7.7); Platelet Count 35 th/mm3 (150-450); Red Blood Count 3.11 mil/mm3 (4.00-5.30); Red Cell Distribution Width 17.9 % (11.6-17.2); White Blood Count 4.5 th/mm3 (4.0-11.0)
[2018-06-13 06:47] LABS: Calcium 7.3 mg/dL (8.5-10.1); Carbon Dioxide 24.1 meq/L (21.0-32.0); Potassium 3.9 meq/L (3.5-5.1)
[2018-06-13 07:04] LABS: Total Protein 6.4 g/dL (6.4-8.2)
[2018-06-13] MEDS: Calcium Carbonate 500 MG Tablet PO SCH ×2 (08:45→20:56)
[2018-06-13] MEDS: Folic Acid 1 MG Tablet PO SCH (08:46)
[2018-06-13] MEDS: Furosemide 20 MG Tablet PO SCH (08:46)
[2018-06-13 08:51] LABS: Lymphocytes 30 % (9-44); Metamyelocytes 1 % (0-1); Monocytes 6 % (0-8); Platelet Morphology Normal (Normal)
--- NOTE | 2018-06-13 10:49 | P.PNONC ---
Subjective Interval history: Afebrile. Patient sitting in bed, visiting with family. She reports she vomited this a.m. She has bile noted on her hospital gown. She also has blood noted on her sheets, this is coming from a tiny pinprick wound on her RUE. Bleeding has stopped. She denies any diarrhea as of yet today. Objective Vital Signs/Intake & Output: Vital Signs 06/12/18 20:00 06/13/18 00:00 06/13/18 08:00 Temperature 97.2 F L 98.1 F 97.5 F L Pulse Rate 84 86 83 Respiratory Rate 16 17 17 Blood Pressure 162/81 H 140/89 158/78 H Pulse Oximetry 97 99 96 Intake & Output 06/12/18 06/13/18 06/13/18 18:59 06:59 18:59 Intake Total 1914 / 1914 900 / 900 335 / 335 Balance 1914 900 / 900 335 / 335 Weight 74.2 kg Intake: IV 1115 / 1115 335 / 335 Potassium Chlor 20 mEq/NACL 0. 1000 / 1000 45% Inj 1,000 ML @ 84 mls/hr IV .CONT .[id number] IFTIKHAR Rx#:[id number] NS Inj 250 ML @ 15 mls/hr IV. SIG ONCE IFTIKHAR Rx#:[id number] Rocephin Inj 1,000 MG In NS Inj 100 / 100 100 / 100 100 ML @ 200 mls/hr IV.SIG Q24H IFTIKHAR Rx#:[id number] Oral 800 / 800 900 / 900 Other: # Voids 3 6 Date of Last Bowel Movement 06/11/18 06/12/18 # Bowel Movements 7 1 Result Diagrams: 06/13/18 06:00 06/13/18 06:00 Laboratory Results: Laboratory Results - last 24 hr 06/13/18 06/13/18 06:00 06:00 WBC 4.5 RBC 3.11 L Hgb 10.9 L Hct 30.4 L MCV 97.7 MCH 34.9 H MCHC 35.8 RDW 17.9 H Plt Count 35 L MPV 8.3 Prelim Diff (Auto) Slide review pending Neut % (Auto) 58.0 Lymph % (Auto) 31.7 [place] % (Auto) 10.0 H Eos % (Auto) 0.2 Baso % (Auto) 0.1 Neut # (Auto) 2.6 Lymph # (Auto) 1.4 [place] # (Auto) 0.5 Eos # (Auto) 0.0 Baso # (Auto) 0.0 WBC Differential Manual diff final Seg Neuts % (Manual) 61 Band Neuts % (Manual) 2 Lymphocytes % (Manual) 30 Monocytes % (Manual) 6 Metamyelocytes % (Man) 1 Abs Neuts (Manual) 2.9 Differential Comment . Platelet Estimate Low L Platelet Morphology Normal Sodium 137 Potassium 3.9 Chloride 102 Carbon Dioxide 24.1 Anion Gap 11 BUN 12 Creatinine 0.99 Estimated GFR 54 L Random Glucose 108 H Calcium 7.3 L* Prot Corrected Calcium 7.7 L Total Protein 6.4 Culture Results: Microbiology 06/10/18 16:05 Urine Culture - Final Clean Catch Urine Escherichia coli 06/11/18 21:47 Enteric Pathogens (PCR) - Final Stool 06/11/18 21:47 Stool Occult Blood (AILEEN) - Final Stool Hemoccult negative Medications: Active Medications Generic Name Dose Route Start Last Admin Trade Name Sebastien PRN Reason Stop Dose Admin Acetaminophen 650 mg 06/10/18 18:07 06/11/18 09:20 Tylenol PO 650 mg Q4H PRN Administration Temp > 100.4 Apixaban 2.5 mg 06/10/18 21:00 06/11/18 09:30 Eliquis PO 2.5 mg BID IFTIKHAR Administration Atorvastatin Calcium 10 mg 06/11/18 09:00 06/13/18 08:45 Lipitor PO 10 mg DAILY IFTIKHAR Administration Enoxaparin Sodium 40 mg 06/12/18 13:00 06/12/18 12:43 Lovenox Inj SQ 40 mg Q24H IFTIKHAR Administration Folic Acid 1 mg 06/11/18 09:00 06/13/18 08:46 Folic Acid PO 1 mg DAILY IFTIKHAR Administration Furosemide 20 mg 06/11/18 09:00 06/13/18 08:46 Lasix PO 20 mg DAILY IFTIKHAR Administration Potassium Chloride/Sodium Chloride 1,000 mls @ 84 mls/hr 06/10/18 20:00 06/13 07:35 Potassium Chlor 20 Meq/Nacl 0.45% Inj IV.CONT Not Given .[id number] IFTIKHAR Ceftriaxone Sodium 1,000 mg/ 100 mls @ 200 mls/hr 06/11/18 09:00 06/13/18 10: 31 Sodium Chloride IV.SIG Infused Q24H IFTIKHAR Infusion Levothyroxine Sodium 25 mcg 06/10/18 20:00 06/13/18 05:46 Synthroid PO 25 mcg DAILY@0600 IFTIKHAR Administration Metronidazole 500 mg 06/11/18 14:00 06/13/18 05:46 Flagyl PO 500 mg Q8HR IFTIKHAR Administration Potassium Chloride 20 meq 06/10/18 20:00 06/13/18 08:46 K-Dur PO 20 meq DAILY IFTIKHAR Administration Sodium Chloride 2 ml 06/10/18 13:35 06/10/18 14:17 Ns Flush IV.FLUSH 2 ml PRN PRN Administration FLUSH AFTER USING IV ACCESS Triamterene/HCTZ 1 cap 06/11/18 09:00 06/13/18 08:45 Dyazide 37.5/25 Mg PO 1 cap DAILY IFTIKHAR Administration Objective Remarks: GENERAL: Elderly female patient, in no acute distress. SKIN: Warm and dry. Small hematoma RUE with tiny pinprick at base with scant sanguinous discharge. HEAD: Normocephalic. EYES: No scleral icterus. No injection or drainage. NECK: Supple, trachea midline. CARDIOVASCULAR: Regular rate and rhythm without murmurs. RESPIRATORY: Anterior breath sounds equal bilaterally. No accessory muscle use. GASTROINTESTINAL: Abdomen soft, non-tender, nondistended. EXTREMITIES: No cyanosis, or edema. MUSCULOSKELETAL: Adequate muscle tone. NEUROLOGICAL: No obvious focal deficit. Awake, alert, and oriented x3. PSYCHIATRIC: Appropriate mood and affect; insight and judgment normal. Assessment/Plan - Plan Ms. Oreilly is a pleasant 77-year-old patient with stage IV lung adenocarcinoma , currently being treated with chemotherapy and pembrolizumab. She was admitted for nausea and vomiting with suspected colitis. Plan: 1. Stage IV lung adenocarcinoma, currently being treated with carboplatin and pemetrexed and pembrolizumab. 2. Anemia and thrombocytopenia due to chemotherapy. Hemoglobin today 10.9, S/ P 2 units of pRBC on 06/11/18. Platelets 35K. We will continue to monitor. 3. Suspected colitis. GI team following, plan on colonoscopy Friday. 4. Urine culture growing E. coli. Continues on antibiotics. 5. Nausea/vomiting. Zofran as needed.
--- NOTE | 2018-06-13 11:14 | P.PNIM ---
Subjective Interval history: Reports active vomiting this morning. Continues to be nauseous and has had poor oral intake. No increase in abdominal pain. Passing gas and having loose stools. Physical Exam Vital signs: Vital Signs 06/12/18 20:00 06/13/18 00:00 06/13/18 08:00 Temperature 97.2 F L 98.1 F 97.5 F L Pulse Rate 84 86 83 Respiratory Rate 16 17 17 Blood Pressure 162/81 H 140/89 158/78 H Pulse Oximetry 97 99 96 Intake & Output 06/12/18 06/13/18 06/13/18 18:59 06:59 18:59 Intake Total 1914 / 1914 900 / 900 335 / 335 Balance 1914 / 1914 900 / 900 335 / 335 Weight 74.2 kg Intake: IV 1115 / 1115 335 / 335 Potassium Chlor 20 mEq/NACL 0. 1000 / 1000 45% Inj 1,000 ML @ 84 mls/hr IV .CONT .[id number] IFTIKHAR Rx#:[id number] NS Inj 250 ML @ 15 mls/hr IV. SIG ONCE IFTIKHAR Rx#:[id number] Rocephin Inj 1,000 MG In NS Inj 100 / 100 100 / 100 100 ML @ 200 mls/hr IV.SIG Q24H IFTIKHAR Rx#:[id number] Oral 800 / 800 900 / 900 Other: # Voids 3 6 Date of Last Bowel Movement 06/11/18 06/12/18 # Bowel Movements 7 1 Narrative: GENERAL: This is a well-nourished, well-developed patient, in no apparent distress. CARDIOVASCULAR: Regular rate and rhythm RESPIRATORY: Clear to auscultation. Breath sounds equal bilaterally. No wheezes , rales, or rhonchi. GASTROINTESTINAL: Abdomen soft, nontender, nondistended normoactive bowel sounds MUSCULOSKELETAL: Extremities without clubbing, cyanosis, or edema. NEURO: Alert & Oriented x4 to person, place, time, situation. Moves all ext x4 Results - Labs CBC & Chem 7: 06/13/18 06:00 06/13/18 06:00 Laboratory Results - last 24 hr 06/13/18 06/13/18 06:00 06:00 WBC 4.5 RBC 3.11 L Hgb 10.9 L Hct 30.4 L MCV 97.7 MCH 34.9 H MCHC 35.8 RDW 17.9 H Plt Count 35 L MPV 8.3 Prelim Diff (Auto) Slide review pending Neut % (Auto) 58.0 Lymph % (Auto) 31.7 [place] % (Auto) 10.0 H Eos % (Auto) 0.2 Baso % (Auto) 0.1 Neut # (Auto) 2.6 Lymph # (Auto) 1.4 [place] # (Auto) 0.5 Eos # (Auto) 0.0 Baso # (Auto) 0.0 WBC Differential Manual diff final Seg Neuts % (Manual) 61 Band Neuts % (Manual) 2 Lymphocytes % (Manual) 30 Monocytes % (Manual) 6 Metamyelocytes % (Man) 1 Abs Neuts (Manual) 2.9 Differential Comment . Platelet Estimate Low L Platelet Morphology Normal Sodium 137 Potassium 3.9 Chloride 102 Carbon Dioxide 24.1 Anion Gap 11 BUN 12 Creatinine 0.99 Estimated GFR 54 L Random Glucose 108 H Calcium 7.3 L* Prot Corrected Calcium 7.7 L Total Protein 6.4 Microbiology 06/10/18 16:05 Clean Catch Urine Urine Culture - Final Escherichia coli 06/11/18 21:47 Stool Enteric Pathogens (PCR) - Final Assessment and Plan - Assessment (1) Colitis Code(s): K52.9 - Noninfective gastroenteritis and colitis, unspecified Status : Acute (2) Nausea & vomiting Code(s): R11.2 - Nausea with vomiting, unspecified Status: Acute (3) Acute UTI Code(s): N39.0 - Urinary tract infection, site not specified Status: Acute (4) Acute hypokalemia Code(s): E87.6 - Hypokalemia Status: Acute - Plan 77-year-old female with 1. Acute colitis now with acute on chronic anemia-status post GI consultation due to to drop in hemoglobin to rule out GI bleed, Hemoccult negative. Zo has been on hold for EGD colonoscopy on Friday for further workup evaluation. Continue with IV fluid hydration, IV Rocephin and Flagyl. Pain control and supportive care. 2. Hypokalemiareplete 3. E. coli urinary tract infection in a patient with immunosuppression due to being on chemo Continue IV Rocephin 4. Acute renal injurydue to nausea vomiting and dehydration Clinically improved with gentle IV fluid hydration and monitor BUN and creatinine Avoid nephrotoxic drugs 4. History of breast cancer with metastases Appreciate oncology consultation due to pancytopenia and thrombocytopenia 5. History of lower extremity DVT Hold Eliquis due to decreased drop in hemoglobin and also for pending EGD colonoscopy Stop Lovenox due to thrombocytopenia 6. Acute on chronic anemiarule out underlying GI bleedstatus post transfused 2 units of packed red blood cells with stable hemoglobin, continue PPI. Eliquis on hold, 7. DVT prophylaxisEliquis on hold due to drop in hemoglobin , scd (2) Nausea & vomiting Qualifiers: Vomiting type: unspecified Vomiting Intractability: intractable Qualified Code(s): R11.2 - Nausea with vomiting, unspecified
--- NOTE | 2018-06-13 16:13 | P.PNGI ---
Subjective Interval history: pt is resting in bed. Denies bleeding, diarrhea or abd pain Physical Exam Vital signs: Vital Signs 06/12/18 20:00 06/13/18 00:00 06/13/18 08:00 Temperature 97.2 F L 98.1 F 97.5 F L Pulse Rate 84 86 83 Respiratory Rate 16 17 17 Blood Pressure 162/81 H 140/89 158/78 H Pulse Oximetry 97 99 96 06/13/18 14:40 Temperature 97.9 F Pulse Rate 86 Respiratory Rate 17 Blood Pressure 163/64 H Pulse Oximetry 95 Intake & Output 06/12/18 06/13/18 06/13/18 18:59 06:59 18:59 Intake Total 1914 / 1914 900 / 900 335 / 335 Balance 1914 900 / 900 335 / 335 Weight 74.2 kg Intake: IV 1115 / 1115 335 / 335 Potassium Chlor 20 mEq/NACL 0. 1000 / 1000 45% Inj 1,000 ML @ 84 mls/hr IV .CONT .[id number] IFTIKHAR Rx#:[id number] NS Inj 250 ML @ 15 mls/hr IV. SIG ONCE IFTIKHAR Rx#:[id number] Rocephin Inj 1,000 MG In NS Inj 100 / 100 100 / 100 100 ML @ 200 mls/hr IV.SIG Q24H IFTIKHAR Rx#:[id number] Oral 800 / 800 900 / 900 Other: # Voids 3 6 Date of Last Bowel Movement 06/11/18 06/12/18 # Bowel Movements 7 1 Narrative: GENERAL: no apparent distress. CARDIOVASCULAR: Regular rate and rhythm RESPIRATORY: Clear to auscultation. GASTROINTESTINAL: Abdomen soft, nontender, nondistended normoactive bowel sounds MUSCULOSKELETAL: Extremities without clubbing, cyanosis, or edema. NEURO: Alert & Oriented x4 Results - Labs CBC & Chem 7: 06/13/18 06:00 06/13/18 06:00 Laboratory Results - last 24 hr 06/13/18 06/13/18 06:00 06:00 WBC 4.5 RBC 3.11 L Hgb 10.9 L Hct 30.4 L MCV 97.7 MCH 34.9 H MCHC 35.8 RDW 17.9 H Plt Count 35 L MPV 8.3 Prelim Diff (Auto) Slide review pending Neut % (Auto) 58.0 Lymph % (Auto) 31.7 [place] % (Auto) 10.0 H Eos % (Auto) 0.2 Baso % (Auto) 0.1 Neut # (Auto) 2.6 Lymph # (Auto) 1.4 [place] # (Auto) 0.5 Eos # (Auto) 0.0 Baso # (Auto) 0.0 WBC Differential Manual diff final Seg Neuts % (Manual) 61 Band Neuts % (Manual) 2 Lymphocytes % (Manual) 30 Monocytes % (Manual) 6 Metamyelocytes % (Man) 1 Abs Neuts (Manual) 2.9 Differential Comment . Platelet Estimate Low L Platelet Morphology Normal Sodium 137 Potassium 3.9 Chloride 102 Carbon Dioxide 24.1 Anion Gap 11 BUN 12 Creatinine 0.99 Estimated GFR 54 L Random Glucose 108 H Calcium 7.3 L* Prot Corrected Calcium 7.7 L Total Protein 6.4 Microbiology 06/10/18 16:05 Clean Catch Urine Urine Culture - Final Escherichia coli 06/11/18 21:47 Stool Enteric Pathogens (PCR) - Final Assessment and Plan - Plan Assessment: - Anemia macrocytic, hyperchromic. hgb today is 10.9 s/p 2 units of blood, no more bleeding Pt reports history of anemia, states has needed 2 blood transfusions over the past 4-6 weeks. No obvious source of GIB. Denies previous EGD. States colonoscopy in September of this year, can not recall any abnormal findings. Thinks it was done in [facility], no records of her at [facility], has not been previously seen by our service Of note, pt is on Eliquis for history of DVT, - Colitis on imaging Stool samples are negative for any C. difficile toxins, no enteric pathogens Pt reports nausea with emesis and diarrhea for two weeks, but has resolved Denies hematochezia, melena, hematemesis, and coffee ground emesis. Also was having lower abdominal pain, states constant, described as aching, now resolved. CT abdomen and pelvis W IV contrast --> Left lower lobe spiculated mass. Fat- containing inguinal hernias. Severe diverticulosis. Small bowel wall thickening involving the large bowel which may reflect a mild colitis. - UTI- on abx - Breast cancer with metastasis- receiving chemotherapy every three weeks Plan: Full liquid diet EGD colonoscopy Friday Clear liquids tomorrow Golytely prep tomorrow NPO after MN Friday Continue to hold Eliquis Flagyl Monitor labs including hemoglobin and WBC count, transfuse as needed Further recommendations to follow Patient was seen per myself and Dr. Rivas , note was written on her behalf
--- NOTE | 2018-06-13 22:00 | ECG ---
Date Performed: 06/13/2018 Time Performed: 14:34:13 PTAGE: 77 years EKG: Sinus rhythm INFERIOR MYOCARDIAL INFARCTION , OF INDETERMINATE AGE ABNORMAL ECG PREVIOUS TRACING : 10/15/2010 14.20 DOCTOR: Davide Sotomayor Interpretating Date/Time 06/13/2018 21:57:02
[2018-06-14] MEDS: metroNIDAZOLE 500 MG Tablet PO SCH ×4 (06:00→22:32)
[2018-06-14] MEDS: KCL 20 mEq/NACL 0.45% Inj 1,000 ML IV.CONT SCH ×3 (06:00→18:30)
[2018-06-14 06:22] LABS: Baso % (Auto) 0.1 % (0.0-2.0); Eos % (Auto) 0.2 % (0.0-4.0); Hematocrit 30.6 % (35.0-46.0); Hemoglobin 10.8 gm/dL (11.6-15.3); Lymph # (Auto) 1.5 th/mm3 (1.0-4.8); Mean Corpuscular HGB Conc 35.5 % (32.0-36.0); Mean Corpuscular Hemoglobin 34.7 pg (27.0-34.0); Mean Corpuscular Volume 97.9 fL (80.0-100.0); Mean Platelet Volume 8.7 fL (7.0-11.0); Mono # (Auto) 0.5 th/mm3 (0.0-0.9); Mono % (Auto) 9.7 % (0.0-8.0); Neut # (Auto) 3.1 th/mm3 (1.8-7.7); Platelet Count 49 th/mm3 (150-450); Red Blood Count 3.12 mil/mm3 (4.00-5.30); Red Cell Distribution Width 17.2 % (11.6-17.2); White Blood Count 5.1 th/mm3 (4.0-11.0)
[2018-06-14 08:13] LABS: Platelet Morphology Normal (Normal)
[2018-06-14] MEDS: Furosemide 20 MG Tablet PO SCH (09:18)
[2018-06-14] MEDS: Folic Acid 1 MG Tablet PO SCH (09:18)
[2018-06-14] MEDS: Calcium Carbonate 500 MG Tablet PO SCH ×2 (09:19→20:50)
--- NOTE | 2018-06-14 10:45 | P.PNIM ---
Subjective Interval history: Patient states still poor appetite. No bloody stools. No abdominal pain. Still feels extremely nauseated and does not know if she can complete the whole [employer] course. Cannot swallow the large potassium pills. Ready for procedure tomorrow. Physical Exam Vital signs: Vital Signs 06/13/18 14:40 06/13/18 20:00 06/14/18 00:00 Temperature 97.9 F 97.3 F L 97.8 F Pulse Rate 86 85 83 Respiratory Rate 17 22 20 Blood Pressure 163/64 H 162/85 H 161/80 H Pulse Oximetry 95 97 96 06/14/18 08:00 Temperature 97.6 F Pulse Rate 83 Respiratory Rate 17 Blood Pressure 128/77 Pulse Oximetry 95 Intake & Output 06/13/18 06/14/18 06/14/18 18:59 06:59 18:59 Intake Total 1335 / 1335 2240 / 2240 1000 / 1000 Balance 1335 / 1335 2240 / 2240 1000 / 1000 Weight 73.1 kg Intake: IV 1335 / 1335 1999 / 1999 1000 / 1000 Potassium Chlor 20 mEq/NACL 0. 1000 / 1000 1999 / 1999 1000 / 1000 45% Inj 1,000 ML @ 84 mls/hr IV .CONT .[id number] IFTIKHAR Rx#:[id number] Rocephin Inj 1,000 MG In NS Inj 100 / 100 100 ML @ 200 mls/hr IV.SIG Q24H IFTIKHAR Rx#:[id number] Oral 240 / 240 Other: # Voids 3 Date of Last Bowel Movement 06/12/18 # Bowel Movements 1 Narrative: GENERAL: Well-nourished well-developed white female in no apparent distress. CARDIOVASCULAR: Regular rate and rhythm RESPIRATORY: Clear to auscultation. GASTROINTESTINAL: Abdomen soft, nontender, nondistended normoactive bowel sounds MUSCULOSKELETAL: Extremities without clubbing, cyanosis, or edema. NEURO: Alert & Oriented x4 Results - Labs CBC & Chem 7: 06/14/18 06:00 06/13/18 06:00 Laboratory Results - last 24 hr 06/14/18 06:00 WBC 5.1 RBC 3.12 L Hgb 10.8 L Hct 30.6 L MCV 97.9 MCH 34.7 H MCHC 35.5 RDW 17.2 Plt Count 49 L D MPV 8.7 Prelim Diff (Auto) Slide review pending Neut % (Auto) 60.0 Lymph % (Auto) 30.0 [place] % (Auto) 9.7 H Eos % (Auto) 0.2 Baso % (Auto) 0.1 Neut # (Auto) 3.1 Lymph # (Auto) 1.5 [place] # (Auto) 0.5 Eos # (Auto) 0.0 Baso # (Auto) 0.0 WBC Differential . Diff Scan Auto diff confirmed Differential Comment . Platelet Estimate Low L Platelet Morphology Normal Microbiology 06/10/18 16:05 Clean Catch Urine Urine Culture - Final Escherichia coli Assessment and Plan - Assessment (1) Colitis Code(s): K52.9 - Noninfective gastroenteritis and colitis, unspecified Status : Acute (2) Nausea & vomiting Code(s): R11.2 - Nausea with vomiting, unspecified Status: Acute (3) Acute UTI Code(s): N39.0 - Urinary tract infection, site not specified Status: Acute (4) Acute hypokalemia Code(s): E87.6 - Hypokalemia Status: Acute - Plan 77-year-old female with 1. Acute colitis now with acute on chronic anemia-status post GI consultation due to to drop in hemoglobin to rule out GI bleed, Hemoccult negative. Eliquis has been on hold for EGD colonoscopy on Friday for further workup evaluation. Continue with IV fluid hydration, IV Rocephin and Flagyl. Pain control and supportive care. 2. Hypokalemiareplete, monitor 3. E. coli urinary tract infection in a patient with immunosuppression due to being on chemo Continue IV Rocephin 4. Acute renal injurydue to nausea vomiting and dehydration Clinically improved with gentle IV fluid hydration and monitor BUN and creatinine Avoid nephrotoxic drugs 4. History of breast cancer with metastases Appreciate oncology consultation due to pancytopenia and thrombocytopenia 5. History of lower extremity DVT Hold Eliquis due to decreased drop in hemoglobin and also for pending EGD colonoscopy Stop Lovenox due to thrombocytopenia 6. Acute on chronic anemiarule out underlying GI bleedstatus post transfused 2 units of packed red blood cells with stable hemoglobin, continue PPI. Eliquis on hold until EGD colonoscopy, 7. DVT prophylaxisEliquis on hold due to drop in hemoglobin , scd (2) Nausea & vomiting Qualifiers: Vomiting type: unspecified Vomiting Intractability: intractable Qualified Code(s): R11.2 - Nausea with vomiting, unspecified
[2018-06-14] MEDS: Potassium Chloride 25 MEQ Effervescent Tablet PO SCH (13:03)
--- NOTE | 2018-06-14 15:02 | P.PNGI ---
Subjective Interval history: Pt is resting in bed doing good, no bleeding, no abd pain. <Nita Calle - Last Filed: 06/14/18 14:59> Physical Exam Vital signs: Vital Signs 06/13/18 20:00 06/14/18 00:00 06/14/18 08:00 Temperature 97.3 F L 97.8 F 97.6 F Pulse Rate 85 83 83 Respiratory Rate 22 20 17 Blood Pressure 162/85 H 161/80 H 128/77 Pulse Oximetry 97 96 95 06/14/18 12:00 Temperature 97.6 F Pulse Rate 80 Respiratory Rate 17 Blood Pressure 120/78 Pulse Oximetry 96 Intake & Output 06/13/18 06/14/18 06/14/18 18:59 06:59 18:59 Intake Total 1335 / 1335 2240 / 2240 1100 / 1100 Balance 1335 / 1335 2240 / 2240 1100 / 1100 Weight 73.1 kg Intake: IV 1335 / 1335 1999 / 2000 1100 / 1100 Potassium Chlor 20 mEq/NACL 0. 1000 / 1000 1999 / 1999 1000 / 1000 45% Inj 1,000 ML @ 84 mls/hr IV .CONT .[id number] [facility] Rx#:[id number] Rocephin Inj 1,000 MG In NS Inj 100 / 100 100 / 100 100 ML @ 200 mls/hr IV.SIG Q24H [facility] Rx#:[id number] Oral 240 / 240 Other: # Voids 3 Date of Last Bowel Movement 06/12/18 # Bowel Movements 1 Narrative: GENERAL: Well-nourished well-developed white female in no apparent distress. CARDIOVASCULAR: Regular rate and rhythm RESPIRATORY: Clear to auscultation. GASTROINTESTINAL: Abdomen soft, nontender, nondistended normoactive bowel sounds MUSCULOSKELETAL: Extremities without clubbing, cyanosis, or edema. NEURO: Alert & Oriented x4 <Nita Calle - Last Filed: 06/14/18 14:59> Vital signs: Vital Signs 06/13/18 20:00 06/14/18 00:00 06/14/18 08:00 Temperature 97.3 F L 97.8 F 97.6 F Pulse Rate 85 83 83 Respiratory Rate 22 20 17 Blood Pressure 162/85 H 161/80 H 128/77 Pulse Oximetry 97 96 95 06/14/18 12:00 Temperature 97.6 F Pulse Rate 80 Respiratory Rate 17 Blood Pressure 120/78 Pulse Oximetry 96 Intake & Output 06/13/18 06/14/18 06/14/18 18:59 06:59 18:59 Intake Total 1335 / 1335 2240 / 2240 1100 / 1100 Balance 1335 / 1335 2240 / 2240 1100 / 1100 Weight 73.1 kg Intake: IV 1335 / 1335 2000 / 2000 1100 / 1100 Potassium Chlor 20 mEq/NACL 0. 1000 / 1000 1999 / 2000 1000 / 1000 45% Inj 1,000 ML @ 84 mls/hr IV .CONT .[id number] [facility] Rx#:[id number] Rocephin Inj 1,000 MG In NS Inj 100 / 100 100 / 100 100 ML @ 200 mls/hr IV.SIG Q24H [facility] Rx#:[id number] Oral 240 / 240 Other: # Voids 3 Date of Last Bowel Movement 06/12/18 # Bowel Movements 1 <Maryan iRvas - Last Filed: 06/14/18 17:14> Results - Labs CBC & Chem 7: 06/14/18 06:00 06/13/18 06:00 Laboratory Results - last 24 hr 06/14/18 06:00 WBC 5.1 RBC 3.12 L Hgb 10.8 L Hct 30.6 L MCV 97.9 MCH 34.7 H MCHC 35.5 RDW 17.2 Plt Count 49 L D MPV 8.7 Prelim Diff (Auto) Slide review pending Neut % (Auto) 60.0 Lymph % (Auto) 30.0 [place] % (Auto) 9.7 H Eos % (Auto) 0.2 Baso % (Auto) 0.1 Neut # (Auto) 3.1 Lymph # (Auto) 1.5 [place] # (Auto) 0.5 Eos # (Auto) 0.0 Baso # (Auto) 0.0 WBC Differential . Diff Scan Auto diff confirmed Differential Comment . Platelet Estimate Low L Platelet Morphology Normal <Nita Calle - Last Filed: 06/14/18 14:59> - Labs CBC & Chem 7: 06/14/18 06:00 06/13/18 06:00 Laboratory Results - last 24 hr 06/14/18 06:00 WBC 5.1 RBC 3.12 L Hgb 10.8 L Hct 30.6 L MCV 97.9 MCH 34.7 H MCHC 35.5 RDW 17.2 Plt Count 49 L D MPV 8.7 Prelim Diff (Auto) Slide review pending Neut % (Auto) 60.0 Lymph % (Auto) 30.0 [place] % (Auto) 9.7 H Eos % (Auto) 0.2 Baso % (Auto) 0.1 Neut # (Auto) 3.1 Lymph # (Auto) 1.5 [place] # (Auto) 0.5 Eos # (Auto) 0.0 Baso # (Auto) 0.0 WBC Differential . Diff Scan Auto diff confirmed Differential Comment . Platelet Estimate Low L Platelet Morphology Normal Microbiology 06/11/18 21:47 Stool Cryptosporidium Antigen - Final Negative - No Cryptosporicium antigen detected In selected cases of patients with a history of immunosuppression or foreign travel, a full ova and parasites examination may be desired. Contact the microbiology lab if full workup is indicated and subit another specimen for testing. 06/11/18 21:47 Stool Giardia Antigen (AILEEN) - Final Negative - No Giardia Antigen detected In selected cases of patients with a history of immunosuppression or foreign travel, a full ova and parasites examination may be desired. Contact the microbiology lab if full workup is indicated and subit another specimen for testing. <Maryan Rivas - Last Filed: 06/14/18 17:14> Assessment and Plan - Plan Assessment: - Anemia macrocytic, hyperchromic. hgb today is 10.8, stable s/p 2 units of blood, no more bleeding Pt reports history of anemia, states has needed 2 blood transfusions over the past 4-6 weeks. No obvious source of GIB. Denies previous EGD. States colonoscopy in September of this year, can not recall any abnormal findings. Thinks it was done in [facility], no records of her at [facility], has not been previously seen by our service Of note, pt is on Eliquis for history of DVT, - Colitis on imaging Stool samples are negative for any C. difficile toxins, no enteric pathogens Pt reports nausea with emesis and diarrhea for two weeks, but has resolved Denies hematochezia, melena, hematemesis, and coffee ground emesis. Also was having lower abdominal pain, states constant, described as aching, now resolved. CT abdomen and pelvis W IV contrast --> Left lower lobe spiculated mass. Fat- containing inguinal hernias. Severe diverticulosis. Small bowel wall thickening involving the large bowel which may reflect a mild colitis. - UTI- on abx - Breast cancer with metastasis- receiving chemotherapy every three weeks Plan: EGD colonoscopy tomorrow Clear liquids mag-citrate prep NPO after MN Continue to hold Eliquis Flagyl Monitor labs including hemoglobin and WBC count, transfuse as needed Further recommendations to follow Patient was seen per myself and Dr. Rivas , note was written on her behalf <Nita Calle - Last Filed: 06/14/18 14:59> - Attending Attestation seen, examined agree with above <Maryan Rivas - Last Filed: 06/14/18 17:14>
[2018-06-14] MEDS ORDERED: Magnesium Citrate Liq 300 ML Bottle PO ONE ×2 (16:00→18:00)
[2018-06-14] MEDS ORDERED: PEG 3350/E-Lyte Soln 4000 ML Bottle PO ONE (16:00)
[2018-06-15] MEDS: metroNIDAZOLE 500 MG Tablet PO SCH ×3 (05:14→21:26)
[2018-06-15] MEDS: KCL 20 mEq/NACL 0.45% Inj 1,000 ML IV.CONT SCH ×4 (05:15→21:27)
[2018-06-15 07:15] LABS: Hematocrit 29.8 % (35.0-46.0); Hemoglobin 10.5 gm/dL (11.6-15.3); Mean Corpuscular HGB Conc 35.4 % (32.0-36.0); Mean Corpuscular Hemoglobin 35.1 pg (27.0-34.0); Mean Corpuscular Volume 99.2 fL (80.0-100.0); Mean Platelet Volume 8.4 fL (7.0-11.0); Platelet Count 55 th/mm3 (150-450); Red Cell Distribution Width 17.5 % (11.6-17.2); White Blood Count 5.7 th/mm3 (4.0-11.0)
--- NOTE | 2018-06-15 10:55 | P.PCN ---
Date of procedure: 06/15/18 Pre-op diagnosis: Anemia, abnormal CT suggestive of colitis Procedure: PROCEDURE PERFORMED EGD with biopsy followed by colonoscopy with biopsy PROCEDURE: The procedure, risks and benefits were discussed with Patient/POA and informed consent was obtained. Anesthesia sedated Patient with Diprivan. Patient was placed in the left lateral decubitus position. EGD: The Pentax videoscope was introduced through the oropharynx and advanced to the second portion of the duodenum under direct visualization. Retroflexion was performed in the stomach. FINDINGS: The esophagus this appeared to be unremarkable with normal limits The stomach there was patchy erythema in the antrum with a small ulceration in the pyloric channel with clean base no visible vessel the rest of the stomach was unremarkable antral biopsies were taken for further evaluation The duodenum this was normal Colonoscopy: The Pentax videoscope was introduced through the rectum and advanced to cecum where the ileocecal valve and appendiceal orifice were identified. Retroflexion was performed in the rectum. Colonic prep was good FINDINGS: Colonic withdrawal time greater than 6 minutes. As the scope was slowly withdrawn colonic mucosa was carefully inspected the patient was noted to have mild patchy erythema in the ascending colon and then the sigmoid this is of unclear significance both areas were biopsied patient was also noted to have severe diverticulosis of the sigmoid region colonic examination was otherwise unremarkable so is retroflexion and rectal examination ESTIMATED BLOOD LOSS: None SPECIMENS REMOVED: Gastric and colon biopsies COMPLICATIONS: None IMPRESSION: Gastritis Gastric ulcer Colon erythema Diverticulosis PLAN: Await biopsies Avoid NSAIDs and aspirin Recommend PPI Recommend EGD in 2 months to follow-up on the ulcer Monitor labs Anesthesia: MAC Surgeon: Mukul Pressley Condition: stable Disposition: floor
--- NOTE | 2018-06-15 11:50 | P.PNIM ---
Subjective Interval history: Patient seen this morning after EGD/colonoscopy. Says she is feeling all right. Denies any chest pain or shortness of breath. Physical Exam Vital signs: Vital Signs 06/14/18 12:00 06/14/18 16:00 06/14/18 20:00 Temperature 97.6 F 97.6 F 97.5 F L Pulse Rate 80 87 88 Respiratory Rate 17 17 22 Blood Pressure 120/78 150/70 H 155/84 H Pulse Oximetry 96 96 96 06/15/18 00:00 Temperature 97.3 F L Pulse Rate 51 L Respiratory Rate 22 Blood Pressure 165/92 H Pulse Oximetry 96 Intake & Output 06/14/18 06/15/18 06/15/18 18:59 06:59 18:59 Intake Total 3060 / 3060 1000 / 1000 Balance 3060 / 3060 1000 / 1000 Weight 72.9 kg Intake: IV 2100 / 2100 1000 / 1000 Potassium Chlor 20 mEq/NACL 0. 2000 / 2000 1000 / 1000 45% Inj 1,000 ML @ 84 mls/hr IV .CONT .[id number] [facility] Rx#:[id number] Rocephin Inj 1,000 MG In NS Inj 100 / 100 100 ML @ 200 mls/hr IV.SIG Q24H [facility] Rx#:[id number] Oral 960 / 960 Other: # Voids 6 3 Date of Last Bowel Movement 06/12/18 06/15/18 # Bowel Movements 1 3 Narrative: GENERAL: Patient sitting up in bed. Appears comfortable. SKIN: Warm and dry. HEAD: Normocephalic. EYES: No scleral icterus. No injection or drainage. NECK: Supple, trachea midline. No JVD. CARDIOVASCULAR: Regular rate and rhythm without murmurs, gallops, or rubs. RESPIRATORY: Breath sounds equal bilaterally. No accessory muscle use. GASTROINTESTINAL: Abdomen soft, non-tender, nondistended. MUSCULOSKELETAL: No cyanosis, or edema. BACK: Nontender without obvious deformity. No CVA tenderness. Results - Labs CBC & Chem 7: 06/15/18 05:21 06/13/18 06:00 Laboratory Results - last 24 hr 06/15/18 05:21 WBC 5.7 RBC 3.00 L Hgb 10.5 L Hct 29.8 L MCV 99.2 MCH 35.1 H MCHC 35.4 RDW 17.5 H Plt Count 55 L MPV 8.4 Microbiology 06/11/18 21:47 Stool Cryptosporidium Antigen - Final Negative - No Cryptosporicium antigen detected In selected cases of patients with a history of immunosuppression or foreign travel, a full ova and parasites examination may be desired. Contact the microbiology lab if full workup is indicated and subit another specimen for testing. 06/11/18 21:47 Stool Giardia Antigen (AILEEN) - Final Negative - No Giardia Antigen detected In selected cases of patients with a history of immunosuppression or foreign travel, a full ova and parasites examination may be desired. Contact the microbiology lab if full workup is indicated and subit another specimen for testing. Assessment and Plan - Assessment (1) Colitis Code(s): K52.9 - Noninfective gastroenteritis and colitis, unspecified Status : Acute (2) Nausea & vomiting Code(s): R11.2 - Nausea with vomiting, unspecified Status: Acute (3) Acute UTI Code(s): N39.0 - Urinary tract infection, site not specified Status: Acute (4) Acute hypokalemia Code(s): E87.6 - Hypokalemia Status: Acute - Plan 77-year-old female with // Acute colitis now with acute on chronic anemia //Peptic ulcer disease -status post GI consultation due to to drop in hemoglobin to rule out GI bleed, Hemoccult negative. Eliquis has been on hold for EGD colonoscopy on Friday for further workup evaluation. Continue with IV fluid hydration, IV Rocephin and Flagyl. Pain control and supportive care. -06/15. Status post EGD with nonbleeding ulcer, gastritis. // Hypokalemia Resolved after replacement. // E. coli urinary tract infection in a patient with immunosuppression due to being on chemo Continue IV Rocephin // Acute renal injurydue to nausea vomiting and dehydration Clinically improved with gentle IV fluid hydration and monitor BUN and creatinine Avoid nephrotoxic drugs //Stage IV lung cancer with metastases Appreciate oncology consultation due to pancytopenia and thrombocytopenia // History of lower extremity DVT Hold Eliquis due to decreased drop in hemoglobin and also for pending EGD colonoscopy Stop Lovenox due to thrombocytopenia = Hematology following. Appreciate assistance. // Acute on chronic anemiarule out underlying GI bleedstatus post transfused 2 units of packed red blood cells with stable hemoglobin, continue PPI. Eliquis on hold until EGD colonoscopy, = Appreciate hematology assistance. // DVT prophylaxisEliquis on hold due to drop in hemoglobin , scd Discharge Planning: PT consult ordered and pending Will need hematology clearance We will need gastroenterology clearance. (2) Nausea & vomiting Qualifiers: Vomiting type: unspecified Vomiting Intractability: intractable Qualified Code(s): R11.2 - Nausea with vomiting, unspecified
[2018-06-15] MEDS: Folic Acid 1 MG Tablet PO SCH (13:05)
[2018-06-15] MEDS: Furosemide 20 MG Tablet PO SCH (13:05)
[2018-06-15] MEDS: Potassium Chloride 25 MEQ Effervescent Tablet PO SCH (13:05)
[2018-06-15] MEDS: Calcium Carbonate 500 MG Tablet PO SCH ×2 (13:06→21:26)
--- NOTE | 2018-06-15 21:45 | P.PNONC ---
Subjective Interval history: Resting comfortably in bed. S/p colonoscopy. Objective Vital Signs/Intake & Output: Vital Signs 06/15/18 00:00 06/15/18 08:00 06/15/18 12:00 Temperature 97.3 F L 98.0 F 98.0 F Pulse Rate 51 L 85 65 Respiratory Rate 22 16 Blood Pressure 165/92 H 157/78 H 142/66 H Pulse Oximetry 96 97 99 06/15/18 12:19 06/15/18 16:00 Temperature 97 F L 97.8 F Pulse Rate 70 79 Respiratory Rate 16 16 Blood Pressure 147/80 H 150/64 H Pulse Oximetry 97 96 Intake & Output 06/15/18 06/15/18 06/16/18 06:59 18:59 06:59 Intake Total 1000 / 1000 2320 / 2320 Balance 1000 / 1000 2320 / 2320 Weight 72.9 kg Intake: IV 1000 / 1000 1100 / 1100 Potassium Chlor 20 mEq/NACL 0. 1000 / 1000 1000 / 1000 45% Inj 1,000 ML @ 84 mls/hr IV .CONT .[id number] [facility] Rx#:[id number] Rocephin Inj 1,000 MG In NS Inj 100 / 100 100 ML @ 200 mls/hr IV.SIG Q24H [facility] Rx#:[id number] Oral 620 / 620 Anesthesia Amount 600 / 600 Other: # Voids 3 3 Date of Last Bowel Movement 06/12/18 06/15/18 # Bowel Movements 3 3 Result Diagrams: 06/15/18 05:21 06/13/18 06:00 Laboratory Results: Laboratory Results - last 24 hr 06/15/18 05:21 WBC 5.7 RBC 3.00 L Hgb 10.5 L Hct 29.8 L MCV 99.2 MCH 35.1 H MCHC 35.4 RDW 17.5 H Plt Count 55 L MPV 8.4 Culture Results: Microbiology 06/11/18 21:47 Cryptosporidium Antigen - Final Stool Negative - No Cryptosporicium antigen detected In selected cases of patients with a history of immunosuppression or foreign travel, a full ova and parasites examination may be desired. Contact the microbiology lab if full workup is indicated and subit another specimen for testing. Giardia Antigen (AILEEN) - Final Negative - No Giardia Antigen detected In selected cases of patients with a history of immunosuppression or foreign travel, a full ova and parasites examination may be desired. Contact the microbiology lab if full workup is indicated and subit another specimen for testing. 06/10/18 16:05 Urine Culture - Final Clean Catch Urine Escherichia coli Medications: Active Medications Generic Name Dose Route Start Last Admin Trade Name Freq PRN Reason Stop Dose Admin Acetaminophen 650 mg 06/10/18 18:07 06/11/18 09:20 Tylenol PO 650 mg Q4H PRN Administration Temp > 100.4 Apixaban 2.5 mg 06/10/18 21:00 06/11/18 09:30 Eliquis PO 2.5 mg BID IFTIKHAR Administration Atorvastatin Calcium 10 mg 06/11/18 09:00 06/15/18 13:05 Lipitor PO 10 mg DAILY IFTIKHAR Administration Folic Acid 1 mg 06/11/18 09:00 06/15/18 13:05 Folic Acid PO 1 mg DAILY IFTIKHAR Administration Furosemide 20 mg 06/11/18 09:00 06/15/18 13:05 Lasix PO 20 mg DAILY IFTIKHAR Administration Potassium Chloride/Sodium Chloride 1,000 mls @ 84 mls/hr 06/10/18 20:00 06/15 21:27 Potassium Chlor 20 Meq/Nacl 0.45% Inj IV.CONT Not Given .[id number] [facility] Ceftriaxone Sodium 1,000 mg/ 100 mls @ 200 mls/hr 06/11/18 09:00 06/15/18 13: 35 Sodium Chloride IV.SIG Infused Q24H IFTI[facility]AR Infusion Levothyroxine Sodium 25 mcg 06/10/18 20:00 06/15/18 05:14 Synthroid PO 25 mcg DAILY@0600 IFIT[facility]AR Administration Metronidazole 500 mg 06/11/18 14:00 06/15/18 21:26 Flagyl PO 500 mg Q8HR IFTI[facility]AR Administration Ondansetron HCl 4 mg 06/10/18 18:07 06/14/18 20:52 Zofran Inj IV.PUSH 4 mg Q6H PRN Administration NAUSEA OR VOMITING Pantoprazole Sodium 40 mg 06/15/18 12:00 06/15/18 13:18 Protonix PO 40 mg DAILY IFTI[facility]AR Administration Potassium Bicarb/Potassium Chloride 25 meq 06/14/18 11:00 06/15/18 13:05 K-Lyte Cl Eff PO 25 meq DAILY IFTIKHAR Administration Potassium Chloride 20 meq 06/10/18 20:00 09/16/18 09:19 K-Dur PO Not Given DAILY IFTI[facility]AR Sodium Chloride 2 ml 06/10/18 13:35 06/14/18 13:04 Ns Flush IV.FLUSH 2 ml PRN PRN Administration FLUSH AFTER USING IV ACCESS Triamterene/HCTZ 1 cap 06/11/18 09:00 06/15/18 13:05 Dyazide 37.5/25 Mg PO 1 cap DAILY IFTIKHAR Administration Objective Remarks: GENERAL: Well-nourished, well-developed patient. SKIN: Warm and dry. HEAD: Normocephalic. EYES: No scleral icterus. No injection or drainage. NECK: Supple, trachea midline. No JVD or lymphadenopathy. LYMPHATIC: No adenopathy. CARDIOVASCULAR: Regular rate and rhythm without murmurs. RESPIRATORY: Breath sounds equal bilaterally. No accessory muscle use. GASTROINTESTINAL: Abdomen soft, non-tender, nondistended. EXTREMITIES: No cyanosis, or edema. MUSCULOSKELETAL: Adequate muscle tone. NEUROLOGICAL: No obvious focal deficit. Awake, alert, and oriented x3. PSYCHIATRIC: Appropriate mood and affect; insight and judgment normal. Assessment/Plan - Plan Stage IV lung adenocarcinoma, currently being treated with carboplatin and pemetrexed and pembrolizumab. Discussed case with patient and family. After discharge from hospital she will follow up in oncology clinic to discuss further chemotherapy and care of malignancy. Anemia and thrombocytopenia due to chemotherapy. Improving Colitis: GI team following. S/p EGD and colonoscopy.
[2018-06-16 05:11] LABS: Hematocrit 27.8 % (35.0-46.0); Mean Corpuscular HGB Conc 35.9 % (32.0-36.0); Mean Corpuscular Hemoglobin 35.4 pg (27.0-34.0); Mean Corpuscular Volume 98.6 fL (80.0-100.0); Mean Platelet Volume 8.1 fL (7.0-11.0); Platelet Count 61 th/mm3 (150-450); Red Blood Count 2.82 mil/mm3 (4.00-5.30); Red Cell Distribution Width 17.1 % (11.6-17.2); White Blood Count 5.8 th/mm3 (4.0-11.0)
[2018-06-16] MEDS: metroNIDAZOLE 500 MG Tablet PO SCH (05:42)
[2018-06-16] MEDS: KCL 20 mEq/NACL 0.45% Inj 1,000 ML IV.CONT SCH ×2 (05:42→06:35)
[2018-06-16] MEDS: Folic Acid 1 MG Tablet PO SCH (08:30)
[2018-06-16] MEDS: Furosemide 20 MG Tablet PO SCH (08:30)
[2018-06-16] MEDS: Calcium Carbonate 500 MG Tablet PO SCH (08:31)
[2018-06-16] MEDS: Potassium Chloride 25 MEQ Effervescent Tablet PO SCH (08:31)
--- NOTE | 2018-06-16 09:50 | P.PNIM ---
Subjective Interval history: Patient says she is feeling all right. Denies any chest pain or shortness of breath. Feels comfortable going home. Physical Exam Vital signs: Vital Signs 06/15/18 12:00 06/15/18 12:19 06/15/18 16:00 Temperature 98.0 F 97 F L 97.8 F Pulse Rate 65 70 79 Respiratory Rate 16 16 Blood Pressure 142/66 H 147/80 H 150/64 H Pulse Oximetry 99 97 96 06/15/18 20:00 06/16/18 00:00 06/16/18 04:00 Temperature 98.2 F 98.2 F 98.1 F Pulse Rate 89 86 80 Respiratory Rate 18 18 18 Blood Pressure 134/73 153/74 H 133/64 Pulse Oximetry 96 93 L 94 L Intake & Output 06/15/18 06/16/18 06/16/18 18:59 06:59 18:59 Intake Total 2320 / 2320 1237 / 1237 Balance 2320 / 2320 1237 / 1237 Intake: IV 1100 / 1100 1000 / 1000 Potassium Chlor 20 mEq/NACL 0. 1000 / 1000 1000 / 1000 45% Inj 1,000 ML @ 84 mls/hr IV .CONT .[id number] [facility] Rx#:[id number] Rocephin Inj 1,000 MG In NS Inj 100 / 100 100 ML @ 200 mls/hr IV.SIG Q24H I[facility] Rx#:[id number] Oral 620 / 620 237 / 237 Anesthesia Amount 600 / 600 Other: # Voids 3 Date of Last Bowel Movement 06/15/18 # Bowel Movements 3 Narrative: GENERAL: Patient sitting up in bed eating breakfast. Appears comfortable. SKIN: Warm and dry. HEAD: Normocephalic. EYES: No scleral icterus. No injection or drainage. NECK: Supple, trachea midline. No JVD. CARDIOVASCULAR: Regular rate and rhythm without murmurs, gallops, or rubs. RESPIRATORY: Breath sounds equal bilaterally. No accessory muscle use. GASTROINTESTINAL: Abdomen soft, non-tender, nondistended. MUSCULOSKELETAL: No cyanosis, or edema. BACK: Nontender without obvious deformity. No CVA tenderness. Results - Labs CBC & Chem 7: 06/16/18 04:52 06/13/18 06:00 Laboratory Results - last 24 hr 06/16/18 04:52 WBC 5.8 RBC 2.82 L Hgb 10.0 L Hct 27.8 L MCV 98.6 MCH 35.4 H MCHC 35.9 RDW 17.1 Plt Count 61 L MPV 8.1 Assessment and Plan - Assessment (1) Colitis Code(s): K52.9 - Noninfective gastroenteritis and colitis, unspecified Status : Acute (2) Nausea & vomiting Code(s): R11.2 - Nausea with vomiting, unspecified Status: Acute (3) Acute UTI Code(s): N39.0 - Urinary tract infection, site not specified Status: Acute (4) Acute hypokalemia Code(s): E87.6 - Hypokalemia Status: Acute - Plan 77-year-old female with // Acute colitis now with acute on chronic anemia //Peptic ulcer disease -status post GI consultation due to to drop in hemoglobin to rule out GI bleed, Hemoccult negative. Eliquis has been on hold for EGD colonoscopy on Friday for further workup evaluation. Continue with IV fluid hydration, IV Rocephin and Flagyl. Pain control and supportive care. -06/15. Status post EGD with nonbleeding ulcer, gastritis. = 06/16. Hemoglobin 10.0. Stable. No signs of bleeding. Continue on PPI. Patient counseled to avoid NSAIDs. Patient conveys understanding. // Hypokalemia Resolved after replacement. Continue replacement home. // E. coli urinary tract infection in a patient with immunosuppression due to being on chemo Continue IV Rocephin = Patient will continue on Levaquin // Acute renal injurydue to nausea vomiting and dehydration Clinically improved with gentle IV fluid hydration and monitor BUN and creatinine Avoid nephrotoxic drugs //Stage IV lung cancer with metastases Appreciate oncology consultation due to pancytopenia and thrombocytopenia // History of lower extremity DVT Hold Eliquis due to decreased drop in hemoglobin and also for pending EGD colonoscopy Stop Lovenox due to thrombocytopenia = Hematology following. Continue on anticoagulation. Appreciate assistance. Follow with hematology as outpatient. // Acute on chronic anemiarule out underlying GI bleedstatus post transfused 2 units of packed red blood cells with stable hemoglobin, continue PPI. Eliquis on hold until EGD colonoscopy, = Appreciate hematology assistance. // DVT prophylaxisEliquis on hold due to drop in hemoglobin , scd Discharge Planning: PT consult ordered and pending Will need hematology clearance We will need gastroenterology clearance. (2) Nausea & vomiting Qualifiers: Vomiting type: unspecified Vomiting Intractability: intractable Qualified Code(s): R11.2 - Nausea with vomiting, unspecified
--- NOTE | 2018-06-16 09:51 | P.DCO ---
- Physical Therapy Order: Evaluate and treat - Home Health Nursing Order: Signs/symptoms of disease process, Nursing assessment with vital signs - Project Management Intern Order: To evaluate: Support services Order: To provide: Long range planning - Certification I have seen patient Shanika Oreilly on 06/16/18. My clinical findings support the need for the requested home health care services because: Limited ability to care for self I certify that my clinical findings support that this patient is homebound because: Unsafe to leave home unassisted
--- NOTE | 2018-06-16 09:52 | P.DS ---
Date of admission: 06/10/18 18:18 Primary care physician: Getachew Giron Brief History from admission: 27-year-old female who for history of breast cancer with metastases on chemotherapy presented to the ED for evaluation of 3 weeks history of intractable nausea, vomiting and abdominal pain. Patient complains of dull and achy abdominal pain without any radiation to her back.. CT abdomen and the ED revealed mild colitis and the patient was found to have low potassium of 2.7. She has no GI bleed, however reports some occasional shortness of breath but denies any chest pain. Although patient does not endorse any dysuria, she was found to have abnormal UA for which she was treated with Rocephin 1 in ED. DS: Diagnosis - Discharge Diagnosis (1) Colitis Status: Acute (2) Nausea & vomiting Status: Acute (3) Acute UTI Status: Acute (4) Acute hypokalemia Status: Acute DS: Medications - Discharge Medications Prescriptions: levofloxacin 750 mg PO DAILY #4 tab metronidazole 500 mg PO TID 4 Days #12 tab pantoprazole 40 mg PO BID 30 Days #60 tab DS: Summary Hospital Course: Patient found to have small bowel wall thickening indicative of colitis. Patient was started on broad-spectrum antibiotics. Patient was also found to have acute anemia with hemoglobin down to 7.3. This improved with blood transfusion, and PPI was started. Gastroenterology was consulted, patient underwent EGD which showed nonbleeding gastric ulcer, gastritis. Patient will continue on PPI. Patient was also found to have UTI secondary to Escherichia coli. She'll continue on the levofloxacin, metronidazole for combined treatment of UTI, colitis. She is to follow with primary care, GI as outpatient. For problem-based summary from most recent progress note, please see below. 77-year-old female with // Acute colitis now with acute on chronic anemia //Peptic ulcer disease -status post GI consultation due to to drop in hemoglobin to rule out GI bleed, Hemoccult negative. Zo has been on hold for EGD colonoscopy on Friday for further workup evaluation. Continue with IV fluid hydration, IV Rocephin and Flagyl. Pain control and supportive care. -06/15. Status post EGD with nonbleeding ulcer, gastritis. = 06/16. Hemoglobin 10.0. Stable. No signs of bleeding. Continue on PPI. Patient counseled to avoid NSAIDs. Patient conveys understanding. // Hypokalemia Resolved after replacement. Continue replacement home. // E. coli urinary tract infection in a patient with immunosuppression due to being on chemo Continue IV Rocephin = Patient will continue on Levaquin // Acute renal injurydue to nausea vomiting and dehydration Clinically improved with gentle IV fluid hydration and monitor BUN and creatinine Avoid nephrotoxic drugs //Stage IV lung cancer with metastases Appreciate oncology consultation due to pancytopenia and thrombocytopenia // History of lower extremity DVT Hold Eliquis due to decreased drop in hemoglobin and also for pending EGD colonoscopy Stop Lovenox due to thrombocytopenia = Hematology following. Continue on anticoagulation. Appreciate assistance. Follow with hematology as outpatient. // Acute on chronic anemiarule out underlying GI bleedstatus post transfused 2 units of packed red blood cells with stable hemoglobin, continue PPI. Eliquis on hold until EGD colonoscopy, = Appreciate hematology assistance. // DVT prophylaxisEliquis on hold due to drop in hemoglobin , scd Discharge Planning: PT consult ordered and pending Will need hematology clearance We will need gastroenterology clearance. - Time Spent with Patient Total time spent providing and/or coordinating discharge services: Greater than 30 minutes - Quality: VTE Deep Vein Thrombosis/Pulmonary Embolism Present on Admission: No Exam Vital signs: Vital Signs 06/15/18 12:00 06/15/18 12:19 06/15/18 16:00 Temperature 98.0 F 97 F L 97.8 F Pulse Rate 65 70 79 Respiratory Rate 16 16 Blood Pressure 142/66 H 147/80 H 150/64 H Pulse Oximetry 99 97 96 06/15/18 20:00 06/16/18 00:00 06/16/18 04:00 Temperature 98.2 F 98.2 F 98.1 F Pulse Rate 89 86 80 Respiratory Rate 18 18 18 Blood Pressure 134/73 153/74 H 133/64 Pulse Oximetry 96 93 L 94 L Intake & Output 06/15/18 06/16/18 06/16/18 18:59 06:59 18:59 Intake Total 2320 / 2320 1237 / 1237 Balance 2320 / 2320 1237 / 1237 Intake: IV 1100 / 1100 1000 / 1000 Potassium Chlor 20 mEq/NACL 0. 1000 / 1000 1000 / 1000 45% Inj 1,000 ML @ 84 mls/hr IV .CONT .[id number] [facility] Rx#:[id number] Rocephin Inj 1,000 MG In NS Inj 100 / 100 100 ML @ 200 mls/hr IV.SIG Q24H [facility] Rx#:[id number] Oral 620 / 620 237 / 237 Anesthesia Amount 600 / 600 Other: # Voids 3 Date of Last Bowel Movement 06/15/18 # Bowel Movements 3 Results Procedures completed during hospitalization: EGD, colonoscopy. Please see report. Biopsies still pending. Pending studies at discharge: Pending at discharge 06/15/18 15:17 Surgical [PTH] Routine Labs on day of discharge: Labs from last 24 hours 06/16/18 04:52 WBC 5.8 RBC 2.82 L Hgb 10.0 L Hct 27.8 L MCV 98.6 MCH 35.4 H MCHC 35.9 RDW 17.1 Plt Count 61 L MPV 8.1 - Impressions ITS Impressions Abdomen/Pelvis CT 06/10/18 13:35 CONCLUSION: 1. Left lower lobe spiculated mass. 2. Fat-containing inguinal hernias. 3. Severe diverticulosis. 4. Small bowel wall thickening involving the large bowel which may reflect a mild colitis. Discharge Plan - Discharge Disposition Patient Disposition: /Home Health Service - Discharge Condition Condition: Stable - Discharge Order Discharge Orders: Discharge Order (Routine); Ordered 06/16/18 Ordered By: Abdirahman Calderón - Discharge Details Anticipated Discharge Date: 06/16/18 - Physicians Team Primary Care Provider: Getachew Chilel Attending Provider: Abdirahman Calderón Other Providers: Barry Sosa MD ; Yumiok Mccollum [employer]
[2018-06-16] MEDS ORDERED: Heparin Central Flush 100 UNIT/ML 5 ML Vial IV.FLUSH ONE (12:00)
[2018-06-16 12:27] VITALS: BP 136/75; PULSE 79; RESP 16; TEMP 98; O2SAT 95
--- NOTE | 2018-06-16 13:50 | P.PNGI ---
Subjective Interval history: Sitting on side of the bed denying any nausea vomiting or abdominal pain, no diarrhea no constipation <Lu Benitez - Last Filed: 06/16/18 13:43> Physical Exam Vital signs: Vital Signs 06/15/18 16:00 06/15/18 20:00 06/16/18 00:00 Temperature 97.8 F 98.2 F 98.2 F Pulse Rate 79 89 86 Respiratory Rate 16 18 18 Blood Pressure 150/64 H 134/73 153/74 H Pulse Oximetry 96 96 93 L 06/16/18 04:00 06/16/18 08:00 06/16/18 12:00 Temperature 98.1 F 98.2 F 98.0 F Pulse Rate 80 75 79 Respiratory Rate 18 14 16 Blood Pressure 133/64 147/80 H 136/75 Pulse Oximetry 94 L 93 L 95 Intake & Output 06/15/18 06/16/18 06/16/18 18:59 06:59 18:59 Intake Total 2320 / 2320 1237 / 1237 Balance 2320 / 2320 1237 / 1237 Intake: IV 1100 / 1100 1000 / 1000 Potassium Chlor 20 mEq/NACL 0. 1000 / 1000 1000 / 1000 45% Inj 1,000 ML @ 84 mls/hr IV .CONT .[id number] [facility] Rx#:[id number] Rocephin Inj 1,000 MG In NS Inj 100 / 100 100 ML @ 200 mls/hr IV.SIG Q24H [facility] Rx#:[id number] Oral 620 / 620 237 / 237 Anesthesia Amount 600 / 600 Other: # Voids 3 Date of Last Bowel Movement 06/15/18 # Bowel Movements 3 - Constitutional no acute distress - Routine HEENT Exam Head: Present: normocephalic ENT: Present: mucous membranes moist - Routine Respiratory Exam Present: accessory muscle use (Even, unlabored) - Routine Cardiovascular Exam Present: S1, S2 - Routine Abdominal Exam Present: soft (Round, active bowel sounds no obvious abdominal pain) <Lu Benitez - Last Filed: 06/16/18 13:43> Vital signs: Intake & Output 06/16/18 06/17/18 06/17/18 18:59 06:59 18:59 Other: Date of Last Bowel Movement 06/15/18 <Mukul Pressley - Last Filed: 06/17/18 16:30> Results - Labs CBC & Chem 7: 06/16/18 04:52 06/13/18 06:00 Laboratory Results - last 24 hr 06/16/18 04:52 WBC 5.8 RBC 2.82 L Hgb 10.0 L Hct 27.8 L MCV 98.6 MCH 35.4 H MCHC 35.9 RDW 17.1 Plt Count 61 L MPV 8.1 <Lu Benitez Doron - Last Filed: 06/16/18 13:43> - Labs CBC & Chem 7: 06/16/18 04:52 06/13/18 06:00 <Mukul Pressley - Last Filed: 06/17/18 16:30> Assessment and Plan - Plan Assessment: - Anemia macrocytic, hyperchromic. hgb today is 10.8, stable s/p 2 units of blood, no more bleeding Pt reports history of anemia, states has needed 2 blood transfusions over the past 4-6 weeks. No obvious source of GIB. Denies previous EGD. States colonoscopy in September of this year, can not recall any abnormal findings. Thinks it was done in [facility], no records of her at [facility], has not been previously seen by our service Of note, pt is on Eliquis for history of DVT, - Colitis on imaging Stool samples are negative for any C. difficile toxins, no enteric pathogens Pt reports nausea with emesis and diarrhea for two weeks, but has resolved Denies hematochezia, melena, hematemesis, and coffee ground emesis. Also was having lower abdominal pain, states constant, described as aching, now resolved. CT abdomen and pelvis W IV contrast --> Left lower lobe spiculated mass. Fat- containing inguinal hernias. Severe diverticulosis. Small bowel wall thickening involving the large bowel which may reflect a mild colitis. - UTI- on abx - Breast cancer with metastasis- receiving chemotherapy every three weeks 06/16/2018 patient is sitting on side of the bed and asymptomatic from any nausea vomiting or abdominal pain. Current hemoglobin mild decrease 10 PT/INR 0.9. Note stool studies show C. difficile negative. Patient is status post EGD and colonoscopy on 06/15/2018. Findings included gastritis and gastric ulcer colonic erythema and diverticulosis. Patient needs to my remain on PPI treatment regimen and have repeat EGD in 2 months. These findings and discussion was had with the patient and her family and also to follow-up in the advanced GI office in 2-4 weeks. Diet as tolerated but monitor any spicy or fatty foods, maintain hydration, avoid NSAIDs, reflux precautions such as not eating late at night elevate head of bed when sleeping if needed to control symptoms of dyspepsia. Patient has been on Eliquis, and still needs precautionary measures and close monitoring for any GI bleeding if patient chooses to take Eliquis. Supportive care, and reviewed Protonix, taking on an empty stomach and eating 30 minutes later. Supportive care to patient and family. Discharge is planned today. Okay from a GI perspective. Current hemoglobin stable at 10, PT/INR 0.9, C. difficile negative. Patient was seen per myself and Dr. Pressley, note was written on his behalf <Lu Benitez - Last Filed: 06/16/18 13:43> - Plan Patient seen and examined Agree with above Continue with current supportive care Monitor labs <Mukul Pressley - Last Filed: 06/17/18 16:30>
== END 2018-06-16 13:12 | disposition home health service (06) ==
LOC: NEDA 12:18 → NEPE 12:18 → NEDA 18:48 → N07 18:50
PROVIDERS: ADMIT Internal Medicine; ATTEND Internal Medicine
PROC: PANENDO (2018-06-15 10:05)
PROC: COLONOS (2018-06-15 10:05)